=== PATIENT | female | born 1985 | race Caucasian/White ===

== ENCOUNTER 2020-09-25 23:01 | Emergency (ER) | payer BC, SELFPAY ==
--- NOTE | ~2020-09-25 | CT_ITS ---
EXAMINATION: CT abdomen pelvis w con INDICATION: Right-sided abdominal pain TECHNIQUE: Computed tomographic images of the abdomen and pelvis were obtained after the administrati on of 100 cc of Omnipaque 350 intravenous contrast. The dose-length product (DLP) was 1501.99 mGy-cm. Automated exposure control and iterative reconstruction technique were employed. COMPARISON: 05/12/2013 FINDINGS: Minimal dependent atelectasis is present in the lung bases. The heart size is normal. There are multiple nodules of the left lower lobe which measure up to 5 mm. An unchanged 7 mm hypoattenuat ing lesion of the left hepatic lobe is consistent with a benign finding. The spleen, pancreas, gallbl adder, and adrenal glands are normal. The kidneys are unremarkable. No pathologically enlarged abdomi nal or pelvic lymph nodes are identified. There is no free intraperitoneal gas or evidence of bowel o bstruction. The appendix is normal. There are supraumbilical hernias containing fat. A small fat-cont aining umbilical hernia is also noted. IMPRESSION: 1. No CT correlate for the patient's symptoms. 2. Multiple left lower lobe nodules measuring 5 mm or less, likely infectious or inflammatory. Reviewed, dictated and finalized at location A. IMPRESSION: 1. No CT correlate for the patient's symptoms. 2. Multiple left lower lobe nodules measuring 5 mm or less, likely infectious o r inflammatory.
[2020-09-25 23:10] VITALS: BP 163/79; PULSE 76; RESP 16; TEMP 36.4; O2SAT 100
--- NOTE | 2020-09-26 00:07 | ED.ABDPAIN ---
HPI - Abdominal Pain General Chief Complaint: Abdominal Pain Stated Complaint: abd pain Time Seen by Provider: 09/26/20 00:07 History of Present Illness HPI narrative: Sudden onset RUQ and right flank pain about 2 hours prior to arrival. Severe. Associated with nausea. This is a new problem. Related Data Allergies Allergy/AdvReac Type Severity Reaction Status Date / Time Quinolones Allergy Severe swelling Verified 09/26/20 00:51 of tongue and lips ciprofloxacin Allergy Mild Other Verified 09/26/20 00:51 Sulfa (Sulfonamide Allergy Mild swelling, Verified 09/26/20 00:51 Antibiotics) SOB terbutaline Allergy Mild Other Verified 09/26/20 00:51 adhesive Allergy Unknown Other Verified 09/26/20 00:51 Review of Systems Review of Systems: All systems reviewed & are unremarkable except as noted in HPI and below Constitutional: Constitutional: Denies fever(s) ENT: Reports dizziness Cardiovascular: Cardiovascular: Denies chest pain Respiratory: Respiratory: Denies dyspnea Gastrointestinal: Gastrointestinal: Reports abdominal pain and Reports nausea Genitourinary: Genitourinary: Reports nocturia Neurologic: Denies dizziness and Denies weakness [facility] Social History Social History (Updated 09/26/20 @ 03:30 by Gurpreet Borden MD) Smoking status: Never smoker Exam Const: General: healthy appearing, no acute distress and alert Orientation/consciousness: patient oriented x3 HENMT: Head: normal to inspection Neck: Neck: normal visual inspection and no lymphadenopathy Chest: Chest palpation & inspection: no tenderness Resp: Effort & Inspection: normal respiratory effort Auscultation: clear to auscultation bilaterally, no rales, no rhonchi and no wheezes Cardio: Jugular venous distension: no JVD Rate: regular rate Rhythm: regular rhythm Heart sounds: no murmurs GI: Inspection: non-distended GI Palp: Yes Soft to palpation and Yes Tenderness to palpation present (GI) (RUQ) : General: Yes CVA tenderness on the right Skin: General skin exam: normal color Neuro: General: patient oriented x3 and moves all extremities Speech: normal speech Extrem: General: no edema Psych: Appearance: well kempt Affect: normal affect Course Vital Signs Vital signs: Vital Signs Temperature 36.4 C L 09/25/20 23:10 Pulse Rate 76 09/25/20 23:10 Respiratory Rate 16 09/25/20 23:10 Blood Pressure 163/79 H 07/30/21 23:10 Pulse Oximetry 100 09/25/20 23:10 Temperature 36.4 C L 09/25/20 23:10 Pulse Rate 88 09/26/20 01:53 Respiratory Rate 18 09/26/20 01:53 Blood Pressure 141/94 H 09/26/20 01:53 Pulse Oximetry 100 09/26/20 01:53 MDM - Abdominal Pain MDM Narrative Medical decision making narrative: Blood on UA. Remaining labs and CT unremarkable. Pain much improved. Most likely passed a kidney stone. Differential Diagnosis Differential diagnosis: Likely calculus of kidney, pancreatitis and other (cholecystitis) Medical Records Attestation: I reviewed the patient's medical records. Lab Data Attestation: I reviewed the patient's lab results. Result diagrams: 09/26/20 00:45 09/26/20 00:45 Labs: Lab Results 09/26/20 09/26/20 09/26/20 Range/Units 00:45 00:45 00:45 WBC 9.3 (4.5-10.0) K/mm3 RBC 4.71 (4.2-5.4) M/mm3 Hgb 13.1 (12.0-15.0) g/dL Hct 40.0 (37.0-47.0) % MCV 84.9 (80-100) fl MCH 27.8 (26-34) pg MCHC 32.8 (32-36) g/dl RDW 13.3 (11.5-14.5) % Plt Count 316 (150-375) k/mm3 MPV 10.2 (7.4-10.4) fl Immature Gran % (Auto) 0.3 (0-0.5) % Neut % (Auto) 61.1 (45.5-73.1) % Lymph % (Auto) 29.6 (18.3-44.2) % [place] % (Auto) 6.0 (2.6-8.5) % Eos % (Auto) 2.5 (0-4.4) % Baso % (Auto) 0.5 (0.2-1.2) % Lymph # (Auto) 2.74 (0.9-3.2) K/mm3 [place] # (Auto) 0.6 (0.1-0.6) K/mm3 Eos # (Auto) 0.2 (0-0.3) K/mm3 Baso # (Auto) 0.1 (0.0-0.1) K/mm3 Abs Immat Gran (auto)
[2020-09-26] MEDS: fentaNYL CITRATE INJ (*CRX) 100 MCG/2 ML VIAL 50 MCG IV PUSH (00:57)
[2020-09-26] MEDS: ONDANSETRON INJ 4 MG/2 ML VIAL IV PUSH (00:57)
[2020-09-26] MEDS: SODIUM CHLORIDE 0.9% IV 1,000 ML 999 ML IV CONT (00:58)
[2020-09-26 01:10] LABS: Add Urine Microscopic? YES; Appearance Urine Clear (Clear); Bilirubin Urine Negative (Negative); Blood Urine 3+ (Negative); Color Urine Yellow (Yellow); Glucose Urine UA Negative (Negative); Ketones Urine Negative (Negative); Leukocyte Esterase Ur Negative LEU/UL (Negative); Mucus Urine Rare /lpf; Nitrate Urine Negative (Negative); Protein Urine Negative (Negative); RBC Urine >75 /hpf (0-2); Specific Grav Ur 1.018 (1.001-1.035); Squamous Epithelial Cell Urine Rare /hpf (Few); Urobilinogen Urine Negative mg/dL (<2.0); WBC Urine 0-3 /hpf
[2020-09-26 01:15] LABS: Basophils Absolute Auto 0.1 K/mm3 (0.0-0.1); Basophils Percent Auto 0.5 % (0.2-1.2); Eosinophils Absolute Auto 0.2 K/mm3 (0-0.3); Eosinophils Percent Auto 2.5 % (0-4.4); Hemoglobin 13.1 g/dL (12.0-15.0); Immature Granulocyte Absolute 0.03 K/mm3 (0.00-0.031); Immature Granulocyte Percent A 0.3 % (0-0.5); Lymphocytes Absolute Auto 2.74 K/mm3 (0.9-3.2); Lymphocytes Percent Auto 29.6 % (18.3-44.2); Mean Corpuscular HGB Conc 32.8 g/dl (32-36); Mean Corpuscular Hemoglobin 27.8 pg (26-34); Mean Corpuscular Volume 84.9 fl (80-100); Mean Platelet Volume 10.2 fl (7.4-10.4); Monocytes Absolute Auto 0.6 K/mm3 (0.1-0.6); Neutrophils Absolute Auto 5.7 K/mm3 (1.3-6.7); Neutrophils Percent Auto 61.1 % (45.5-73.1); Platelet Count Result 316 k/mm3 (150-375); Red Blood Count 4.71 M/mm3 (4.2-5.4); Red Cell Distribution Width 13.3 % (11.5-14.5); White Blood Count 9.3 K/mm3 (4.5-10.0)
[2020-09-26 01:30] LABS: Alanine Aminotransferase 13 U/L (4-35); Albumin Level 4.3 g/dL (3.5-5.1); Alkaline Phosphatase 71 U/L (38-126); Anion Gap 11 mmol/L (8-16); Aspartate Amino Transferase 18 U/L (14-36); Bilirubin,Total 0.2 mg/dL (0.2-1.3); Blood Urea Nitrogen 10 mg/dL (7-17); Calcium 9.3 mg/dL (8.4-10.2); Carbon Dioxide 22 mmol/L (22-30); Chloride 107 mmol/L (98-107); Estimated CRCL calculation 117 ml/min; Estimated Glomerular Filt Rate > 60; Glucose 94 mg/dL (65-110); Lipase 256 U/L (23-300); Potassium 4.2 mmol/L (3.4-5.0); Sodium 140 mmol/L (137-145)
[2020-09-26 01:53] VITALS: BP 141/94; PULSE 88; RESP 18; O2SAT 100
[2020-09-26 04:20] VITALS: BP 144/78; PULSE 88; RESP 18; O2SAT 100
== END 2020-09-26 04:20 | disposition home or self-care (01) ==
PROVIDERS: Emergency Provider Emergency Medicine
DX: R10.11 Right upper quadrant pain (principal); R91.8 Other nonspecific abnormal finding of lung field
CPT/HCPCS: 36415; 74177; 80053; 81001; 81025; 83690; 85025; 96361; 96374; 96375; 99284; J2405; J3010; J7030; Q9967

== ENCOUNTER 2020-11-27 20:27 | Emergency (ER) | payer BC, SELFPAY ==
--- NOTE | ~2020-11-27 | XR_ITS ---
IMPRESSION: 1. No acute cardiopulmonary abnormality. EXAMINATION: XR chest 2V DATE: 11/27/2020 21:11 INDICATION: Chest pain TECHNIQUE: PA and lateral views of the chest are obtained. COMPARISON: 08/26/2011 FINDINGS: The lungs are free of acute opacities. There is no pleural effusion or pneumothorax. The ca rdiomediastinal silhouette is normal. The visualized bones and soft tissues are unremarkable. IMPRESSION: 1. No acute cardiopulmonary abnormality. Reviewed, dictated and finalized at location A.
--- NOTE | 2020-11-27 20:42 | ECG_ITS ---
Measurements Intervals [place] Rate: 90 P: 30 [place]: 122 QRS: 70 QRSD: 108 T: 26 QT: 364 QTc: 447 Interpretive Statements SINUS RHYTHM BASELINE ARTIFACT- I, II, AVR NORMAL ECG Electronically Signed On 11-28-2020 8:30:58 CDT by David Dunn D.O.
[2020-11-27 20:50] VITALS: BP 163/110; PULSE 94; RESP 20; TEMP 37.2; O2SAT 98
[2020-11-27 21:41] LABS: Basophils Percent Auto 0.4 % (0.2-1.2); Eosinophils Percent Auto 0.4 % (0-4.4); Hematocrit 40.9 % (37.0-47.0); Hemoglobin 13.9 g/dL (12.0-15.0); Immature Granulocyte Absolute 0.04 K/mm3 (0.00-0.031); Immature Granulocyte Percent A 0.4 % (0-0.5); Lymphocytes Percent Auto 19.3 % (18.3-44.2); Mean Corpuscular Hemoglobin 28.4 pg (26-34); Mean Corpuscular Volume 83.6 fl (80-100); Mean Platelet Volume 9.6 fl (7.4-10.4); Monocytes Absolute Auto 0.6 K/mm3 (0.1-0.6); Neutrophils Absolute Auto 7.6 K/mm3 (1.3-6.7); Neutrophils Percent Auto 73.5 % (45.5-73.1); Platelet Count Result 329 k/mm3 (150-375); Red Blood Count 4.89 M/mm3 (4.2-5.4); Red Cell Distribution Width 13.5 % (11.5-14.5); White Blood Count 10.4 K/mm3 (4.5-10.0)
[2020-11-27 21:53] LABS: Anion Gap 13 mmol/L (8-16); Blood Urea Nitrogen 6 mg/dL (7-17); Calcium 9.7 mg/dL (8.4-10.2); Carbon Dioxide 19 mmol/L (22-30); Chloride 106 mmol/L (98-107); Estimated CRCL calculation 133 ml/min; Estimated Glomerular Filt Rate > 60; Glucose 102 mg/dL (65-110); Potassium 3.7 mmol/L (3.4-5.0); Sodium 138 mmol/L (137-145)
[2020-11-27 22:05] LABS: Troponin I < 0.012 ng/mL (0.000-0.034)
[2020-11-28 02:12] VITALS: BP 150/97; PULSE 79; RESP 23; O2SAT 99
[2020-11-28 02:16] LABS: Prothrombin Time 12.9 Seconds (11.1-14.7)
[2020-11-28 02:17] LABS: Partial Thromboplastin Time 28.3 SECONDS (22.3-36.8)
[2020-11-28 02:29] LABS: Troponin I < 0.012 ng/mL (0.000-0.034)
[2020-11-28] MEDS: MECLIZINE HCL 25 MG TABLET PO (02:51)
[2020-11-28] MEDS: HYDROGEN PEROXIDE 3% SOLN(*SP) 473 ML BOTTLE (03:30)
--- NOTE | 2020-11-28 03:34 | PC.NURSE ---
irrigated bilateral ears w/ hydrogen peroxide and warm water. noticeable earwax extracted from both ears.
[2020-11-28 04:15] VITALS: BP 144/98; PULSE 89; RESP 17; O2SAT 99
--- NOTE | 2020-11-28 04:34 | ED.CHESTPAIN ---
HPI - Chest Pain General Chief Complaint: Chest Pain Stated Complaint: chest pain Time Seen by Provider: 11/28/20 02:30 History of Present Illness HPI narrative: Patient is a 35-year-old female who presents to the ER with dizziness and chest pain. Reports she was walking a local department store when she began to feel lightheaded. She then developed chest pain and tightness. She began to feel anxious as well. Chest pain persists but the anxiousness has resolved. Reports mild dizziness with nausea. No ringing in the ear. No sinus congestion or sore throat. Related Data Allergies Allergy/AdvReac Type Severity Reaction Status Date / Time Quinolones Allergy Severe swelling Verified 11/27/20 20:53 of tongue and lips ciprofloxacin Allergy Mild Other Verified 11/27/20 20:53 Sulfa (Sulfonamide Allergy Mild swelling, Verified 11/27/20 20:53 Antibiotics) SOB terbutaline Allergy Mild Other Verified 11/27/20 20:53 adhesive Allergy Unknown Other Verified 11/27/20 20:53 Review of Systems Review of Systems: All systems reviewed & are unremarkable except as noted in HPI and below Constitutional: Constitutional: Denies chills, Denies fever(s) and Denies weakness ENT: Reports dizziness, Denies nasal congestion and Denies sore throat Cardiovascular: Cardiovascular: Reports chest pain, Denies rapid heart rate and Denies radiating jaw, neck or arm pain Respiratory: Respiratory: Denies cough and Denies dyspnea Gastrointestinal: Gastrointestinal: Denies abdominal pain, Reports nausea and Denies vomiting PMFSH Past Medical History Medical History (Updated 11/28/20 @ 04:46 by Gagan Carrera MD) Interstitial cystitis Migraines Surgical History Surgical History (Updated 11/28/20 @ 04:38 by Gagan Carrera MD) History of tubal ligation Social History Social History (Updated 09/26/20 @ 03:30 by Gurpreet Borden MD) Smoking status: Never smoker Exam Narrative: GENERAL: Well-appearing, well-nourished, and in no acute distress. HEAD: Normocephalic, atraumatic. EYES: PERRL and EOMI. ENT: Mucous membranes moist. Moderate cerumen right ear canal with partial obstruction of the tympanic membrane. Normal left tympanic membrane. CHEST: Clear to auscultation. No respiratory distress. HEART: Regular rate and rhythm. Normal peripheral pulses. ABDOMEN: Soft, nontender, nondistendeds. EXTREMITIES: Normal range of motion. No edema. SKIN: Warm, dry, no rash. NEURO: Alert and oriented x3. Course Course Emergency Course: Troponin negative x2. Meclizine given for dizziness. No hypoxia or elevated heart rate. No pain with deep breaths. Lower extremity swelling. Discharge home with anti-inflammatories. Follow-up with PCP. Vital Signs Vital signs: Vital Signs Temperature 98.9 F 11/27/20 20:50 Pulse Rate 94 11/27/20 20:50 Respiratory Rate 20 11/27/20 20:50 Blood Pressure 163/110 H 11/27/20 20:50 Pulse Oximetry 98 11/27/20 20:50 Temperature 98.9 F 11/27/20 20:50 Pulse Rate 89 11/28/20 04:15 Respiratory Rate 17 11/28/20 04:15 Blood Pressure 144/98 H 11/28/20 04:15 Pulse Oximetry 99 11/28/20 04:15 MDM - Chest Pain Lab Data Result diagrams: 11/27/20 21:31 11/27/20 21:31 Labs: Lab Results 11/27/20 11/27/20 11/28/20 Range/Units 21:31 21:31 01:51 WBC 10.4 H (4.5-10.0) K/mm3 RBC 4.89 (4.2-5.4) M/mm3 Hgb 13.9 (12.0-15.0) g/dL Hct 40.9 (37.0-47.0) % MCV 83.6 (80-100) fl MCH 28.4 (26-34) pg MCHC 34.0 (32-36) g/dl RDW 13.5 (11.5-14.5) % Plt Count 329 (150-375) k/mm3 MPV 9.6 (7.4-10.4) fl Immature Gran % (Auto) 0.4 (0-0.5) % Neut % (Auto) 73.5 H (45.5-73.1) % Lymph % (Auto) 19.3 (18.3-44.2) % [place] % (Auto) 6.0 (2.6-8.5) % Eos % (Auto) 0.4 (0-4.4) % Baso % (Auto) 0.4 (0.2-1.2) % Lymph # (Auto) 2.00 (0.9-3.2) K/mm3 [place] # (Auto) 0.6 (0.1-0.6) K/mm3 Eos
[2020-11-28 04:57] VITALS: BP 159/91; PULSE 68; RESP 17; O2SAT 99
== END 2020-11-28 05:00 | disposition home or self-care (01) ==
PROVIDERS: Emergency Medicine; Emergency Provider Emergency Medicine
DX: R07.89 Other chest pain (principal)
CPT/HCPCS: 36415; 71046; 80048; 84484; 85025; 85610; 85730; 93005; 99284; A9270

== ENCOUNTER 2021-01-19 12:08 | Emergency (ER) | payer BC, SELFPAY ==
[2021-01-19] VITALS (22 sets, daily range): BP systolic 110–140; BP diastolic 80–92; PULSE 70–96; RESP 16–33; TEMP 36.4; O2SAT 97–98
--- NOTE | ~2021-01-19 | XR_ITS ---
EXAMINATION: XR chest 2V DATE: 01/19/2021 13:25 INDICATION: Midsternal chest pain TECHNIQUE: frontal and lateral views of the chest were obtained. COMPARISON: Chest radiograph dated 11/27/2020 FINDINGS: The lungs remain clear with no focal airspace opacities, pulmonary edema, pleural effusion or pneumot horax. The cardiomediastinal silhouette is normal. Visualized bones and soft tissues are unremarkable . IMPRESSION: 1. No acute cardiopulmonary disease. Reviewed, dictated and finalized at location A. TION DEVELOPER
--- NOTE | 2021-01-19 13:00 | ECG_ITS ---
Measurements Intervals [place] Rate: 91 P: 37 PA: 132 QRS: 67 QRSD: 104 T: 38 QT: 373 QTc: 461 Interpretive Statements SINUS RHYTHM INCOMPLETE RIGHT BUNDLE BRANCH BLOCK BORDERLINE ECG Electronically Signed On 01-19-2021 16:25:59 [employer]OCK AND WATCH HANDS DIPPER by David Dunn D.O.
--- NOTE | 2021-01-19 13:13 | ED.CHESTPAIN ---
HPI - Chest Pain General Chief Complaint: Chest Pain Stated Complaint: cp, sob Time Seen by Provider: 01/19/21 12:55 Source: patient Mode of arrival: ambulatory Limitations: no limitations History of Present Illness HPI narrative: Patient is a 35-year-old female complaining of chest pain, midsternal, sharp, 4 out of 10, nonradiating started today. Patient denies any shortness of breath, abdominal pain, nausea, vomiting, diaphoresis, fever or chills. Patient states that she had similar events in the past, most recent was last month was seen here and was diagnosed with atypical chest pain. Related Data Home Medications Medication Instructions Recorded Confirmed nitrofurantoin monohyd/m-cryst 100 mg PO Q12H 01/19/21 [Macrobid] Allergies Allergy/AdvReac Type Severity Reaction Status Date / Time Quinolones Allergy Severe swelling Verified 01/19/21 12:16 of tongue and lips ciprofloxacin Allergy Mild Other Verified 01/19/21 12:16 Sulfa (Sulfonamide Allergy Mild swelling, Verified 01/19/21 12:16 Antibiotics) SOB terbutaline Allergy Mild Other Verified 01/19/21 12:16 adhesive Allergy Unknown Other Verified 01/19/21 12:16 Review of Systems Review of Systems: All systems reviewed & are unremarkable except as noted in HPI and below Constitutional: Constitutional: Denies body ache(s), Denies chills, Denies excessive sweating, Denies fatigue, Denies fever(s), Denies headache(s), Denies lethargy, Denies malaise, Denies weakness and Denies weight loss Eyes: Eyes: Denies blurry vision, Denies change in vision and Denies loss of vision ENT: Denies dizziness, Denies ear discharge, Denies headache(s), Denies lip swelling, Denies epistaxis, Denies nasal congestion, Denies neck pain, Denies throat swelling and Denies tongue swelling Cardiovascular: Cardiovascular: Denies diaphoresis, Denies rapid heart rate, Denies edema, Denies irregular heart rhythm, Denies lightheadedness, Denies palpitations, Denies dyspnea and Denies dyspnea on exertion Respiratory: Respiratory: Denies chest congestion, Denies cough, Denies hemoptysis, Denies dyspnea and Denies dyspnea on exertion Gastrointestinal: Gastrointestinal: Denies abdominal pain, Denies melena, Denies hematochezia, Denies diarrhea, Denies nausea, Denies vomiting and Denies hematemesis Musculoskeletal: Musculoskeletal: Denies abnormal gait, Denies deformity, Denies joint swelling, Denies limited range of motion, Denies neck pain and Denies numbness Neurologic: Denies Abnormal speech present, Denies abnormal gait, Denies confusion, Denies dizziness, Denies headache(s), Denies focal weakness, Denies loss of vision, Denies numbness, Denies Other visual disturbances, Denies Sensory deficit (Neuro) and Denies weakness Psychiatric: Psychiatric: Denies confusion, Denies depression, Denies auditory hallucinations, Denies homicidal ideation and Denies suicidal ideation Endocrine: Endocrine: Denies cold intolerance, Denies excessive sweating, Denies fatigue, Denies heat intolerance and Denies palpitations Hematologic/Lymphatic: Hematologic/Lymphatic: Denies easy bleeding and Denies easy bruising Allergic/Immunologic: Allergic/Immunologic: Denies lip swelling, Denies throat swelling and Denies tongue swelling PMFSH Past Medical History Medical History (Updated 01/19/21 @ 15:55 by Jose Francisco Martin MD) Interstitial cystitis Migraines Surgical History Surgical History (Updated 11/28/20 @ 04:38 by Gagan Carrera MD) History of tubal ligation Social History Social History (Updated 09/26/20 @ 03:30 by Gurpreet Borden MD) Smoking status: Never smoker Comments Past medical history: None Family history: Negative for coronary disease or [place] Social history: Non-smoker no EtOH or drug use Exam Const: General: cooperative, healthy appearing, comfortable, no acute distress, well developed, alert and awake; No confusion Orientation/consciousness: oriented to person, orien
[2021-01-19 13:29] LABS: Basophils Percent Auto 0.5 % (0.2-1.2); Eosinophils Percent Auto 0.4 % (0-4.4); Hematocrit 40.2 % (37.0-47.0); Hemoglobin 13.7 g/dL (12.0-15.0); Immature Granulocyte Absolute 0.03 K/mm3 (0.00-0.031); Immature Granulocyte Percent A 0.4 % (0-0.5); Lymphocytes Percent Auto 19.7 % (18.3-44.2); Mean Corpuscular HGB Conc 34.1 g/dl (32-36); Mean Corpuscular Hemoglobin 28.9 pg (26-34); Mean Corpuscular Volume 84.8 fl (80-100); Mean Platelet Volume 10.1 fl (7.4-10.4); Monocytes Absolute Auto 0.4 K/mm3 (0.1-0.6); Monocytes Percent Auto 4.9 % (2.6-8.5); Neutrophils Absolute Auto 5.6 K/mm3 (1.3-6.7); Neutrophils Percent Auto 74.1 % (45.5-73.1); Platelet Count Result 316 k/mm3 (150-375); Red Blood Count 4.74 M/mm3 (4.2-5.4); Red Cell Distribution Width 13.2 % (11.5-14.5); White Blood Count 7.6 K/mm3 (4.5-10.0)
[2021-01-19 13:33] LABS: INR 1.1; Prothrombin Time 13.6 Seconds (11.1-14.7)
[2021-01-19 13:34] LABS: Partial Thromboplastin Time 28.9 SECONDS (22.3-36.8)
[2021-01-19 13:37] LABS: D Dimer 0.34 ug/mL (<0.48)
[2021-01-19 13:47] LABS: Alanine Aminotransferase 16 U/L (4-35); Albumin Level 4.4 g/dL (3.5-5.1); Alkaline Phosphatase 91 U/L (38-126); Anion Gap 10 mmol/L (8-16); Aspartate Amino Transferase 21 U/L (14-36); Bilirubin,Total 0.7 mg/dL (0.2-1.3); Blood Urea Nitrogen 6 mg/dL (7-17); Calcium 9.7 mg/dL (8.4-10.2); Carbon Dioxide 23 mmol/L (22-30); Chloride 107 mmol/L (98-107); Estimated CRCL calculation 127 ml/min; Estimated Glomerular Filt Rate > 60; Glucose 99 mg/dL (65-110); Lipase 106 U/L (23-300); Potassium 3.8 mmol/L (3.4-5.0); Sodium 140 mmol/L (137-145)
[2021-01-19 14:16] LABS: Troponin I < 0.012 ng/mL (0.000-0.034)
[2021-01-19] MEDS: KETOROLAC 30 MG/ML VIAL (*BKC) (15:00)
[2021-01-19 15:29] LABS: Troponin I < 0.012 ng/mL (0.000-0.034)
== END 2021-01-19 16:28 | disposition home or self-care (01) ==
PROVIDERS: Emergency Provider Emergency Medicine
DX: R07.89 Other chest pain (principal)
CPT/HCPCS: 36415; 71046; 80053; 83690; 84484; 85025; 85380; 85610; 85730; 93005; 96374; 99284; J1885

== ENCOUNTER 2021-01-19 18:58 | Observation (INO) | payer BC, SELFPAY ==
[2021-01-19] VITALS (13 sets, daily range): BP systolic 140–165; BP diastolic 78–110; PULSE 70–90; RESP 13–29; TEMP 36.2; O2SAT 99
--- NOTE | ~2021-01-19 | CT_ITS ---
EXAMINATION: CT brain wo con DATE: 01/20/2021 08:49 INDICATION: Syncope. TECHNIQUE: Computed tomography (CT) of the head was performed without intravenous contrast. The mA wa s adjusted according to patient size. Iterative reconstruction technique was employed. The dose-lengt h product was 529.67 mGy-cm. COMPARISON: Head CT 01/25/2009, brain MRI 01/26/2009 FINDINGS: There is no intracranial hemorrhage, acute infarction, or abnormal intracranial mass lesion . The ventricles are normal in size. There is mild mucosal thickening in the ethmoid sinuses. The mas toid air cells are normal. The orbits are normal. IMPRESSION: 1. Normal brain. Reviewed, dictated and finalized at location B. S TRADER IMPRESSION: 1. Normal brain.
--- NOTE | ~2021-01-19 | US_ITS ---
EXAMINATION: US venous doppler [facility] DATE: 01/22/2021 08:37 INDICATION: Bilateral lower limb pain TECHNIQUE: Torres scale images without and with compression and Doppler images of the bilateral lower e xtremity veins were obtained. COMPARISON: None FINDINGS: The right common femoral vein, profunda femoral vein, femoral vein, popliteal vein, peroneal trunk, p osterior tibial veins, and greater saphenous vein are patent. The left common femoral vein, profunda femoral vein, femoral vein, popliteal vein, peroneal trunk, po sterior tibial veins, and greater saphenous vein are patent. IMPRESSION: 1. Patent bilateral lower extremity veins. No evidence of deep venous thrombosis. Reviewed, dictated and finalized at location A. SPECIALIST IMPRESSION: 1. Patent bilateral lower extremity veins. No evidence of deep venous thrombosi s.
--- NOTE | ~2021-01-19 | US_ITS ---
EXAMINATION: US carotid duplex BI DATE: 01/20/2021 09:25 INDICATION: Syncope TECHNIQUE: Grayscale, color Doppler, and pulsed Doppler images of the cervical carotid arteries were obtained. The degree of vessel stenosis is placed in one of the following categories: normal, <50%, 5 0-69%, >=70% but less than near-occlusion, near-occlusion, or total occlusion. Note that percent sten osis relative to normal distal artery lumen diameter is indirectly measured from velocity measurement s as described by Gurpreet, et al. Radiology 2003; 229:340-346. COMPARISON: None. FINDINGS: RIGHT: The right common carotid artery (CCA) peak systolic velocity (PSV) is 86 cm/s. The right internal car otid artery (ICA) PSV is 100 cm/s. The right ICA end-diastolic velocity (EDV) is 48 cm/s. The right I CA/CCA PSV ratio is 1.2. Grayscale and color Doppler images demonstrate no evident stenosis or plaque in the ICA. The external carotid artery (ECA) PSV is 83 cm/s. There is antegrade flow in the right v ertebral artery. LEFT: The left CCA PSV is 113 cm/s. The left ICA PSV is 80 cm/s. The left ICA EDV is 32 cm/s. The left ICA/ CCA PSV ratio is 0.7. Grayscale and color Doppler images demonstrate no evident stenosis or plaque in the ICA. The ECA PSV is 85 cm/s. There is antegrade flow in the left vertebral artery. IMPRESSION: 1. No plaque or stenosis in the right internal carotid artery. 2. No plaque or stenosis in the left internal carotid artery. Reviewed, dictated and finalized at location A. F BANK EXAMINER
--- NOTE | ~2021-01-19 | CT_ITS ---
EXAMINATION: CT abdomen pelvis w con DATE: 01/22/2021 05:51 INDICATION: Unexplained weight loss. Left lower quadrant abdominal pain. TECHNIQUE: Computed tomography (CT) of the abdomen and pelvis was performed with 100 mL Omnipaque-350 intravenous contrast. Automated exposure control and iterative reconstruction technique were employe d. The dose-length product was 1475.17 mGy-cm. COMPARISON: 09/26/2020 and 05/12/2013. Gallbladder, pancreas, bilateral adrenal glands and kidneys are normal. FINDINGS: No significant interval change in a few nodules measuring up to 4 mm in the left lower lobe noted on the most recent study. Heart size is normal. No pericardial or pleural effusion. Small sliding-type h iatal hernia. Likely benign 7 mm hypodense lesion in segment IVb of the liver which is unchanged sinc e 2013. A couple likely benign subcentimeter low-attenuation splenic lesions also unchanged since the most recent study and one of which was present in 2013. Normal appendix. No abnormal bowel wall thic kening or obstruction. Tiny fat-containing umbilical hernia. Small to moderate-sized fat-containing s upraumbilical ventral hernia. Bladder, anteverted uterus and bilateral adnexa are unremarkable aside from likely bilateral tubal ligations. Correlate with clinical history. No free intraperitoneal gas o r fluid. No pathologically enlarged abdominal or pelvic lymphadenopathy. Bones are unremarkable. IMPRESSION: 1. No acute intra-abdominal/pelvic process. 2. Small sliding-type hiatal hernia. 3. Fat-containing umbilical and supraumbilical ventral hernias. Reviewed, dictated and finalized at location A. CARRIER
--- NOTE | ~2021-01-19 | US_ITS ---
EXAMINATION: US abdomen limited EXAM DATE: 01/20/2021 09:22 INDICATION: Epigastric pain. TECHNIQUE: Multiple grayscale and Doppler images of the abdomen right upper quadrant were obtained (alma rosa marquez a technologist who performed the scan) and subsequently reviewed. There is no prior study for bernie nicholson. FINDINGS: The pancreatic head and body are normal in appearance. The pancreatic tail is not visualized. The l iver has normal echogenicity and contour. There are no focal liver lesions identified. There is no evidence of intrahepatic biliary duct dilation. Portal venous flow was seen in the hepatopedal, nor mal direction and has normal Doppler waveform. No right-sided hydronephrosis. Common bile duct measures 3 mm, which is normal. The gallbladder wall is normal in thickness, with ex pected amount of distention. No sonographic evidence of pericholecystic fluid. There is no cholelit hiases. Technologist performing exam reports patient did not demonstrate sonographic Leon's sign. Please note that this sign is less reliable in patients who have received pain medication. IMPRESSION: Unremarkable right upper quadrant sonogram. Reviewed, dictated and finalized at location A. RAL STATION OPERATOR
--- NOTE | ~2021-01-19 | CT_ITS ---
EXAMINATION: CTA chest PE protocol DATE: 01/19/2021 20:08 TECHNICAL WRITING LEAD/MGR INDICATION: Shortness of breath, chest pain and syncope TECHNIQUE: Computed tomographic angiography (CTA) of the chest was performed with 100 mL Omnipaque-35 0 intravenous contrast. The dose-length product was 578.85 mGy-cm. Maximum intensity projection 3D-re constructions of the aorta and other arteries were constructed by the technologist on a separate work station. Automated exposure control and iterative reconstruction technique were employed. COMPARISON: Chest x-ray dated 01/19/2021. FINDINGS: Study is technically adequate without evidence for pulmonary embolism. No evidence for aort ic aneurysm or dissection. No significant pleural or pericardial effusion. Small hiatal hernia. Heart size is normal. No thoracic lymphadenopathy. No endobronchial lesions. Dependent atelectasis. No pne umothorax. No focal airspace consolidation. No pulmonary nodules/masses. IMPRESSION: 1. No acute cardiopulmonary disease. No evidence for pulmonary embolism. Reviewed, dictated and finalized at location A. NICAL WRITING LEAD/MGR
--- NOTE | 2021-01-19 19:00 | ECG_ITS ---
Measurements Intervals [place] Rate: 74 P: 29 [place]: 125 QRS: 61 QRSD: 105 T: 39 QT: 394 QTc: 439 Interpretive Statements SINUS RHYTHM INCOMPLETE RIGHT BUNDLE BRANCH BORDERLINE ECG BLOCK Electronically Signed On 01-19-2021 19:25:05 LAND AGENT by David Dunn D.O.
[2021-01-19 19:19] LABS: Basophils Absolute Auto 0.1 K/mm3 (0.0-0.1); Basophils Percent Auto 0.7 % (0.2-1.2); Eosinophils Absolute Auto 0.1 K/mm3 (0-0.3); Eosinophils Percent Auto 0.7 % (0-4.4); Hematocrit 42.3 % (37.0-47.0); Hemoglobin 14.4 g/dL (12.0-15.0); Immature Granulocyte Absolute 0.02 K/mm3 (0.00-0.031); Immature Granulocyte Percent A 0.2 % (0-0.5); Lymphocytes Absolute Auto 1.88 K/mm3 (0.9-3.2); Lymphocytes Percent Auto 21.9 % (18.3-44.2); Mean Corpuscular Hemoglobin 28.9 pg (26-34); Mean Corpuscular Volume 84.9 fl (80-100); Mean Platelet Volume 9.9 fl (7.4-10.4); Monocytes Absolute Auto 0.6 K/mm3 (0.1-0.6); Monocytes Percent Auto 6.5 % (2.6-8.5); Platelet Count Result 317 k/mm3 (150-375); Red Blood Count 4.98 M/mm3 (4.2-5.4); Red Cell Distribution Width 13.3 % (11.5-14.5); White Blood Count 8.6 K/mm3 (4.5-10.0)
[2021-01-19 19:30] LABS: Prothrombin Time 13.4 Seconds (11.1-14.7)
[2021-01-19 19:31] LABS: Partial Thromboplastin Time 27.6 SECONDS (22.3-36.8)
[2021-01-19 19:37] LABS: Alanine Aminotransferase 17 U/L (4-35); Albumin Level 4.6 g/dL (3.5-5.1); Alkaline Phosphatase 96 U/L (38-126); Anion Gap 13 mmol/L (8-16); Aspartate Amino Transferase 20 U/L (14-36); Bilirubin,Total 0.8 mg/dL (0.2-1.3); Blood Urea Nitrogen 7 mg/dL (7-17); Calcium 9.7 mg/dL (8.4-10.2); Carbon Dioxide 20 mmol/L (22-30); Chloride 104 mmol/L (98-107); Estimated CRCL calculation 113 ml/min; Estimated Glomerular Filt Rate > 60; Glucose 94 mg/dL (65-110); Lipase 141 U/L (23-300); Potassium 3.5 mmol/L (3.4-5.0); Sodium 137 mmol/L (137-145)
[2021-01-19 19:50] LABS: Troponin I < 0.012 ng/mL (0.000-0.034)
[2021-01-19] MEDS: LIDOCAINE 5% PATCH 2 PATCH TRANSDERM (21:32)
--- NOTE | 2021-01-19 21:37 | PC.NURSE ---
patients demanding ultrasound of gallbladder for patient. request passed on to ERP
--- NOTE | 2021-01-19 22:17 | ED.CHESTPAIN ---
HPI - Chest Pain General Chief Complaint: Chest Pain Stated Complaint: Dizzy, Syncopal Episode Time Seen by Provider: 01/19/21 19:46 Source: patient and family Mode of arrival: EMS Limitations: clinical condition History of Present Illness HPI narrative: 35-year-old female Here for syncope and chest pain See prior note of earlier ED visit today here for similar issues which ended with benign work-up and discharged back to home However the patient says that when she was discharged she was still having a lot of pain and that when she got back to the house she had another episode of sharp pain culminating in a syncopal episode after standing up to walk into the kitchen and recovered to find her family running around and fanning her and calling EMS When she notes that she continues to have pain even now and that she is also experiencing dizziness which seems like more vertigo even while lying still and supine on the gurney In addition to that she reports that she has general weakness and fatigue and believes that she has lost weight or at least going down 2 pant sizes over the last month or 2 without trying to do so Related Data Home Medications Medication Instructions Recorded Confirmed nitrofurantoin monohyd/m-cryst 100 mg PO Q12H 01/19/21 [Macrobid] Allergies Allergy/AdvReac Type Severity Reaction Status Date / Time Quinolones Allergy Severe swelling Verified 01/19/21 20:10 of tongue and lips ciprofloxacin Allergy Mild Other Verified 01/19/21 20:10 Sulfa (Sulfonamide Allergy Mild swelling, Verified 01/19/21 20:10 Antibiotics) SOB terbutaline Allergy Mild Other Verified 01/19/21 20:10 adhesive Allergy Unknown Other Verified 01/19/21 20:10 naproxen AdvReac Swelling Verified 01/19/21 20:10 Review of Systems Review of Systems: All systems reviewed & are unremarkable except as noted in HPI and below Constitutional: Constitutional: Reports no additional constitutional complaints, Denies chills, Reports fatigue, Denies fever(s), Denies headache(s) and Reports weakness Eyes: Eyes: Reports no additional eye complaints and Denies change in vision ENT: Reports vertigo, Reports dizziness, Denies headache(s) and Denies sore throat Cardiovascular: Cardiovascular: Reports chest pain and Denies dyspnea Respiratory: Respiratory: Denies cough and Denies dyspnea Gastrointestinal: Gastrointestinal: Denies abdominal pain, Denies diarrhea, Denies nausea and Denies vomiting Genitourinary: Genitourinary: Denies urinary frequency and Denies dysuria Musculoskeletal: Musculoskeletal: Denies deformity, Reports arthralgias, Denies joint swelling and Denies numbness Integumentary/Breasts: Skin/Breast: Denies rash and Denies wounds Neurologic: Denies headache(s), Denies focal weakness and Denies numbness Psychiatric: Psychiatric: Reports no additional psychiatric complaints Endocrine: Endocrine: Reports no additional endocrine complaints Hematologic/Lymphatic: Hematologic/Lymphatic: Reports no additional hematologic/lymphatic complaints Allergic/Immunologic: Allergic/Immunologic: Reports no additional allergic/immunologic complaints [facility] Past Medical History Medical History (Reviewed 01/19/21 @ 22: by Gibson Olivas MD) Interstitial cystitis Migraines Surgical History Surgical History (Reviewed 01/19/21 @ : by Gisbon Olivas MD) History of tubal ligation Social History Social History (Reviewed 01/19/21 @ 22: by Gibson Olivas MD) Smoking status: Never smoker Exam Const: General: cooperative, no acute distress and alert Nutritional Appearance: obese Orientation/consciousness: patient oriented x3 (alert) HENMT: Head: normal to inspection, normocephalic, atraumatic, no contusions and no hematomas Ears: external ears normal General nose exam: no epistaxis Eyes: Conjunctivae: conjunctivae normal EOM: EOMs intact bilaterally Other: No nystagmus Neck: Neck: normal visual inspection
[2021-01-19 22:27] LABS: Troponin I < 0.012 ng/mL (0.000-0.034)
[2021-01-19] MEDS: BELLADONNA ALK/PHENOB ELIX 10 ML, MAG HYDROX/ALUMINUM HYD/SIMETH 30 ML, LIDOCAINE HCL 2... PO (23:27)
[2021-01-20] VITALS (11 sets, daily range): BP systolic 112–166; BP diastolic 46–100; PULSE 70–85; RESP 16–20; TEMP 36.1–37.1; O2SAT 97–99; BMI 39.9
--- NOTE | 2021-01-20 00:20 | ADMGEN ---
This patient, Brandy Yip, was admitted to 3 [facility] Surg Room 309-01. Patient/family oriented to hospital policies and general routines including ID bracelet, bed and alarms, visiting hours, pain management, procedures, bathroom and other care routines, personal items, smoking policy, room service/diet, and visiting hours. Information on how to activate the Rapid Response Team has been discussed. Patient/Family are encouraged to report perceived risks to care and to ask questions if they do not understand what they are told or what they should do.
[2021-01-20] MEDS: LACTATED RINGERS 1,000 ML 80 ML IV CONT ×2 (00:25→15:55)
[2021-01-20 01:55] LABS: Troponin I < 0.012 ng/mL (0.000-0.034)
--- NOTE | 2021-01-20 03:50 | PM.IMHP ---
H&P: HPI History of Present Illness Date/Time: 01/20/21 03:50 Chief Complaint: Syncope Narrative: This is a 35-year-old female with past medical history significant for migraines, morbid obesity. Patient presented to the emergency room after she had a syncopal episode she had been to the emergency room 2 days prior to to the night where she had a workup done for acute chest pain that turned out nonrevealing and she was sent home. Tonight the patient comes back to the emergency room after she had a syncopal episode while she got up went to the kitchen while standing and walk up to a sternal rub was laying on the floor her blood pressure at that time systolic was 160 and he was measured by 1 of her family members she was brought to the emergency room while in the emergency room she got up and she had another syncopal episode. Preliminary workup again has been essentially nonrevealing. Patient states that she has been having nausea and vomiting for the last several days has not been able to keep anything down she denies any fevers, chills, rigors, cough, sputum production, abdominal pain or diarrhea, has had some weight loss as a result of these. Patient was noted to be orthostatic she has been admitted for further management assessment and treatment. A CT did not show pulmonary embolism a chest x-ray did not show any infiltrates. Review of Systems Review of Systems: Syncope, lightheadedness, nausea vomiting. Constitutional: Constitutional: Denies chills, Denies fever(s), Denies lethargy, Denies night sweats, Denies poor appetite and Denies weakness Eyes: Eyes: Denies change in vision ENT: Denies dysphagia, Denies vertigo, Denies dizziness, Denies nasal congestion, Denies nasal discharge, Denies nasal obstruction and Denies odynophagia Cardiovascular: Cardiovascular: Denies leg edema, Reports lightheadedness, Denies radiating jaw, neck or arm pain, Denies palpitations, Denies dyspnea, Denies dyspnea on exertion and Denies orthopnea Respiratory: Respiratory: Denies change in phlegm color, Denies cough, Denies excessive phlegm production, Denies pain on inspiration, Denies dyspnea and Denies wheezing Gastrointestinal: Gastrointestinal: Denies abdominal pain, Denies dyspepsia, Denies heartburn, Denies diarrhea, Reports nausea and Reports vomiting Genitourinary: Genitourinary: Denies dysuria Musculoskeletal: Musculoskeletal: Denies back pain and Denies myalgias Integumentary/Breasts: Skin/Breast: Denies rash Neurologic: Denies focal weakness and Denies Sensory deficit (Neuro) Psychiatric: Psychiatric: Reports no additional psychiatric complaints and Reports as per HPI Endocrine: Endocrine: Reports no additional endocrine complaints and Reports as per HPI Hematologic/Lymphatic: Hematologic/Lymphatic: Reports no additional hematologic/lymphatic complaints and Reports as per HPI Allergic/Immunologic: Allergic/Immunologic: Reports no additional allergic/immunologic complaints and Reports as per HPI PMFSH Past Medical History Medical History Interstitial cystitis Migraines Surgical History Surgical History History of tubal ligation Family History Family History (Updated 01/20/21 @ 00:52 by Clare Byers RN) Son Immunocompromised Sibling Immunocompromised Grandparent Cancer Hypertension Diabetes mellitus Congestive heart failure Cerebrovascular accident History of blood clots Acute myocardial infarction Father Cancer Hypertension Social History Social History Smoking status: Never smoker Alcohol intake: never Substance use: never Substance use type: does not use Spiritual care concerns: No Meds Home Medications and Allergies Home Medications Medication Instructions Recorded Confirmed Type No Home Medications 01/20/21 01/20/21 H
[2021-01-20] MEDS: SUCRALFATE SUSP 100 MG/ML 10 ML UDC 1000 MG PO ×4 (05:31→20:31)
--- NOTE | 2021-01-20 08:00 | P.PNIM_ITS ---
Progress Note: A&P Assessment and Plan (1) Orthostatic syncope: Code(s): I95.1 - Orthostatic hypotension Status: Acute Assessment and Plan: * HX of seizures, took Keppra, but experienced mental changes * One episode prior to arrival and one episode in the ED * Head CT Normal brain * Carotid doppler: no stenosis Bilaterally * Neurology consult thank you for your recommendations * IV fluids LR 80ml/hr * Monitor I's and O's * CTA No PE or cardiopulmonary disease * ECG SR * EEG ordered * Wonder if BP is playing a role in the syncope (2) Nausea and vomiting: Code(s): R11.2 - Nausea with vomiting, unspecified Status: Acute Assessment and Plan: * Seems to be resolved at this time * Natalie ordered * Heart healthy diet, and stated that she was hungry. (3) Morbid obesity with BMI of 40.0-44.9, adult: Code(s): E66.01 - Morbid (severe) obesity due to excess calories; Z68.41 - Body mass index [BMI] 40.0-44.9, adult Status: Acute Assessment and Plan: * Lifestyle and diet modifications (4) Hypertension: Code(s): I10 - Essential (primary) hypertension Status: Acute Assessment and Plan: * Looks to be hypertensive * 120-170 systolically * Will continue to trend * Awaiting orthostatic pressures as well (5) Abdominal pain: Code(s): R10.9 - Unspecified abdominal pain Status: Acute Assessment and Plan: * complaining of intermittent lower left abdominal pain * looks as if she get a GI cocktail in the ED * Carafate and Protonix started * abdominal ultrasound unremarkable * supportive care (6) Chest pain: Code(s): R07.9 - Chest pain, unspecified Status: Acute Assessment and Plan: * reports chest pain sternal no radiation * chest x-ray: No acute cardiopulmonary disease * chest CTA no PE * EKG shows sinus rhythm (7) Orthostatic hypertension: Code(s): I10 - Essential (primary) hypertension Status: Acute Assessment and Plan: * Layin/90, Sittin/100, Standin/81 * Start patient on lisinopril 10mg PO * Trend BP * Adjust therapy as needed Time Spent With Patient Time with patient: Greater than 35 minutes Subjective Date/time seen: 01/20/21 08:00 Interval history: Date/Time: 01/20/21 03:50 Narrative: This is a 35-year-old female with past medical history significant for migraines, morbid obesity. Patient presented to the emergency room after she had a syncopal episode she had been to the emergency room 2 days prior to to the night where she had a workup done for acute chest pain that turned out nonrevealing and she was sent home. Tonight the patient comes back to the emergency room after she had a syncopal episode while she got up went to the kitchen while standing and walk up to a sternal rub was laying on the floor her blood pressure at that time systolic was 160 and he was measured by 1 of her family members she was brought to the emergency room while in the emergency room she got up and she had another syncopal episode. Preliminary workup again has been essentially nonrevealing. Patient states that she has been having nausea and vomiting for the last several days has not been able to keep anything down she denies any fevers, chills, rigors, cough, sputum production, abdominal pain or diarrhea, has had some weight loss as a result of these. Patient was noted to be
--- NOTE | 2021-01-20 08:00 | PM.IMPN ---
Progress Note: A&P Assessment and Plan (1) Orthostatic syncope: Code(s): I95.1 - Orthostatic hypotension Status: Acute Assessment and Plan: HX of seizures, took Keppra, but experienced mental changes One episode prior to arrival and one episode in the ED Head CT Normal brain Carotid doppler: no stenosis Bilaterally Neurology consult thank you for your recommendations IV fluids LR 80ml/hr Monitor I's and O's CTA No PE or cardiopulmonary disease ECG SR EEG ordered Wonder if BP is playing a role in the syncope (2) Nausea and vomiting: Code(s): R11.2 - Nausea with vomiting, unspecified Status: Acute Assessment and Plan: Seems to be resolved at this time Natalie ordered Heart healthy diet, and stated that she was hungry. (3) Morbid obesity with BMI of 40.0-44.9, adult: Code(s): E66.01 - Morbid (severe) obesity due to excess calories; Z68.41 - Body mass index [BMI] 40.0-44.9, adult Status: Acute Assessment and Plan: Lifestyle and diet modifications (4) Hypertension: Code(s): I10 - Essential (primary) hypertension Status: Acute Assessment and Plan: Looks to be hypertensive 120-170 systolically Will continue to trend Awaiting orthostatic pressures as well (5) Abdominal pain: Code(s): R10.9 - Unspecified abdominal pain Status: Acute Assessment and Plan: complaining of intermittent lower left abdominal pain looks as if she get a GI cocktail in the ED Carafate and Protonix started abdominal ultrasound unremarkable supportive care (6) Chest pain: Code(s): R07.9 - Chest pain, unspecified Status: Acute Assessment and Plan: reports chest pain sternal no radiation chest x-ray: No acute cardiopulmonary disease chest CTA no PE EKG shows sinus rhythm (7) Orthostatic hypertension: Code(s): I10 - Essential (primary) hypertension Status: Acute Assessment and Plan: Layin/90, Sittin/100, Standin/81 Start patient on lisinopril 10mg PO Trend BP Adjust therapy as needed Time Spent With Patient Time with patient: Greater than 35 minutes Subjective Date/time seen: 01/20/21 08:00 Interval history: Date/Time: 01/20/21 03:50 Narrative: This is a 35-year-old female with past medical history significant for migraines, morbid obesity. Patient presented to the emergency room after she had a syncopal episode she had been to the emergency room 2 days prior to to the night where she had a workup done for acute chest pain that turned out nonrevealing and she was sent home. Tonight the patient comes back to the emergency room after she had a syncopal episode while she got up went to the kitchen while standing and walk up to a sternal rub was laying on the floor her blood pressure at that time systolic was 160 and he was measured by 1 of her family members she was brought to the emergency room while in the emergency room she got up and she had another syncopal episode. Preliminary workup again has been essentially nonrevealing. Patient states that she has been having nausea and vomiting for the last several days has not been able to keep anything down she denies any fevers, chills, rigors, cough, sputum production, abdominal pain or diarrhea, has had some weight loss as a result of these. Patient was noted to be orthostatic she has been admitted for further management assessment and treatment. A CT did not show pulmonary embolism a chest x-ray did not show any infiltrates. Date/Time Seen: 01/20/21 08:00 This morning I was called by nursing that the patient was having chest pain. Patient stated that her chest pain is dull without radiation. She did say that she had radiation to her jaw yesterday however not at this time. She was more concerned because every time she has chest pain she does have a sync
[2021-01-20] MEDS: oxyCODONE HCL (*CRX) 2.5 MG TAB IR PO ×2 (10:46→17:43)
[2021-01-20] MEDS: PANTOPRAZOLE SODIUM IV 40 MG VIAL IV PUSH ×2 (10:47→17:18)
--- NOTE | 2021-01-20 11:04 | WPDNEURCNPN ---
Assessment and Plan Additional Plan 1 vasovagal syncope 2. Orthostatic hypotension. Plan is to document orthostatic hypotension while she is here in addition to obtaining the EEG to rule out the remote possibility of seizure in addition to the cardiac evaluation Consult date: 01/20/21 HPI: Brandy Yip is a 35 year old femaleAdmitted to the hospital for the complaints of syncopal episodes patient carries the diagnosis of 1. Migraine 2. History of interstitial cystitis 3. Never smoker or drinker 4. No specific history of home medications. Patient presented to the emergency room subsequently having had a syncopal episode she had been in the emergency room 2 days previously as well when she woke up acute chest pain but the evaluation at that time in the emergency room was negative this time she got up went to the kitchen while standing and was walking up to sternal rub was laying down on the floor her blood pressure at that time 160 and was measured by 1 of her family members in the emergency room she got up and she had another syncopal episodes she has also been complaining of nausea and vomiting patient was not noted to be orthostatic in the ER he was admitted for further evaluation a CT did not show pulmonary embolism and also chest x-ray did not reveal any infiltration Review of Systems Review of Systems: All systems reviewed & are unremarkable except as noted in HPI and below PMFSH Past Medical History Medical History Interstitial cystitis Migraines Surgical History Surgical History History of tubal ligation Family History Family History Son Immunocompromised Sibling Immunocompromised Grandparent Cancer Hypertension Diabetes mellitus Congestive heart failure Cerebrovascular accident History of blood clots Acute myocardial infarction Father Cancer Hypertension Social History Social History Smoking status: Never smoker Alcohol intake: never Substance use: never Substance use type: does not use Spiritual care concerns: No Meds Home Medications and Allergies Home Medications Medication Instructions Recorded Confirmed Type No Home Medications 01/20/21 01/20/21 History Allergies Allergy/AdvReac Type Severity Reaction Status Date / Time Quinolones Allergy Severe swelling Verified 01/20/21 01:02 of tongue and lips ciprofloxacin Allergy Mild Other Verified 01/20/21 01:02 Sulfa (Sulfonamide Allergy Mild swelling, Verified 01/20/21 01:02 Antibiotics) SOB terbutaline Allergy Mild Other Verified 01/20/21 01:02 adhesive Allergy Unknown Other Verified 01/20/21 01:02 peanut Allergy Anaphylaxis Verified 01/20/21 01:02 pine nut Allergy Anaphylaxis Verified 01/20/21 01:02 tree nut Allergy Anaphylaxis Verified 01/20/21 01:02 naproxen AdvReac Swelling Verified 01/20/21 01:02 Vital Signs Vital Signs - 24 hr 01/19/21 19:01 01/19/21 19:35 01/19/21 19:37 Temperature 36.2 C L Pulse Rate 73 79 80 Respiratory Rate 18 25 H 18 Blood Pressure 164/110 H 165/92 H Pulse Oximetry 99 01/19/21 19:45 01/19/21 20:05 01/19/21 20:06 Temperature Pulse Rate 79 88 90 Respiratory Rate 20 21 H 22 H Blood Pressure 158/94 H 150/93 H Pulse Oximetry 01/19/21 20:15 01/19/21 20:30 01/19/21 20:31 Temperature Pulse Rate 73 70 80 Respiratory Rate 20 20 23 H Blood Pressure 145/78 H 142/79 H Pulse Oximetry 01/19/21 20:45 01/19/21 20:46 01/19/21 21:00 Temperature Pulse Rate 80 79 78 Respiratory Rate 13 19 22 H Blood Pressure 156/91 H 140/96 H Pulse Oximetry 01/19/21 21:01 01/20/21 00:03 01/20/21 04:00 Temperature Pulse Rate 75 77 84 Respiratory Rate 29 H 16 Blood Pressure 140/85 Pulse Oximetry 97 Exam Narrative: examination revealed
[2021-01-20] MEDS: lisinopriL 10 MG TABLET PO (15:32)
[2021-01-21] VITALS (11 sets, daily range): BP systolic 100–153; BP diastolic 54–90; PULSE 64–86; RESP 12–20; TEMP 35.8–36.5; O2SAT 98–100
[2021-01-21] MEDS: LACTATED RINGERS 1,000 ML 80 ML IV CONT (03:51)
[2021-01-21] MEDS: SUCRALFATE SUSP 100 MG/ML 10 ML UDC 1000 MG PO ×4 (06:10→20:49)
[2021-01-21 06:50] LABS: Basophils Percent Auto 0.6 % (0.2-1.2); Eosinophils Absolute Auto 0.1 K/mm3 (0-0.3); Eosinophils Percent Auto 1.7 % (0-4.4); Hematocrit 37.5 % (37.0-47.0); Hemoglobin 12.3 g/dL (12.0-15.0); Immature Granulocyte Absolute 0.02 K/mm3 (0.00-0.031); Immature Granulocyte Percent A 0.3 % (0-0.5); Lymphocytes Absolute Auto 1.57 K/mm3 (0.9-3.2); Mean Corpuscular HGB Conc 32.8 g/dl (32-36); Mean Corpuscular Volume 85.2 fl (80-100); Mean Platelet Volume 10.3 fl (7.4-10.4); Monocytes Absolute Auto 0.5 K/mm3 (0.1-0.6); Monocytes Percent Auto 8.3 % (2.6-8.5); Neutrophils Percent Auto 64.1 % (45.5-73.1); Platelet Count Result 254 k/mm3 (150-375); Red Cell Distribution Width 13.3 % (11.5-14.5); White Blood Count 6.3 K/mm3 (4.5-10.0)
[2021-01-21 07:02] LABS: Alanine Aminotransferase 12 U/L (4-35); Albumin Level 3.3 g/dL (3.5-5.1); Alkaline Phosphatase 63 U/L (38-126); Anion Gap 3 mmol/L (8-16); Aspartate Amino Transferase 15 U/L (14-36); Bilirubin,Total 0.4 mg/dL (0.2-1.3); Blood Urea Nitrogen 9 mg/dL (7-17); Calcium 8.8 mg/dL (8.4-10.2); Carbon Dioxide 30 mmol/L (22-30); Chloride 106 mmol/L (98-107); Estimated CRCL calculation 113 ml/min; Estimated Glomerular Filt Rate > 60; Glucose 102 mg/dL (65-110); Potassium 3.7 mmol/L (3.4-5.0); Sodium 139 mmol/L (137-145)
[2021-01-21] MEDS: lisinopriL 10 MG TABLET PO (08:44)
[2021-01-21] MEDS: PANTOPRAZOLE SODIUM IV 40 MG VIAL IV PUSH ×2 (08:44→17:38)
--- NOTE | 2021-01-21 15:28 | PM.IMPN ---
Progress Note: A&P Assessment and Plan (1) Orthostatic syncope: Code(s): I95.1 - Orthostatic hypotension Status: Acute Assessment and Plan: Patient with a syncopal episode associated with chest pain. She does have a history of seizures and Keppra in the past but this was stopped due to mental status changes. Workup thus far has been unrevealing with a normal right upper quadrant ultrasound, CTA negative for PE, troponin negative x3, carotid ultrasound normal and CT brain normal. EEG ordered was results pending. Not orthostatic on recent vital signs. Will check echocardiogram. Cardiology consult. Follow up on EEG results. Will check left lower extremity venous Doppler but felt DVT less likely. Consider pheochromocytoma. Stop IV fluids. Check TSH, B12. Consider ST A/P. NPO after MN in case stres test recommended. (2) Nausea and vomiting: Code(s): R11.2 - Nausea with vomiting, unspecified Status: Acute Assessment and Plan: Patient with complaints of nausea vomiting. Symptoms resolved. Zofran available as needed. Continue current diet. (3) Morbid obesity with BMI of 40.0-44.9, adult: Code(s): E66.01 - Morbid (severe) obesity due to excess calories; Z68.41 - Body mass index [BMI] 40.0-44.9, adult Status: Acute Assessment and Plan: BMI 40. Lifestyle and diet modifications (4) Hypertension: Code(s): I10 - Essential (primary) hypertension Status: Acute Assessment and Plan: Concern for orthostatic syncope but BP okay. She was started on lisinopril. Will monitor for now. (5) Abdominal pain: Code(s): R10.9 - Unspecified abdominal pain Status: Acute Assessment and Plan: Patient complains of intermittent abdominal pain left lower quadrant (maybe epigastric to other providers?). Upper quadrant ultrasounds normal. She was started on Protonix and Carafate. Symptoms appear to have resolved. Consider CT A/P. (6) Chest pain: Code(s): R07.9 - Chest pain, unspecified Status: Acute Assessment and Plan: As above. Troponins negative x3. EKG showing normal sinus rhythm. Concerning for malignant arrhythmia low she has had this evaluated the past without clear etiology. Telemetry showing no significant dysrhythmias. Cardiology consult. Continue to monitor for now on telemetry. (7) DVT prophylaxis: Code(s): Z29.9 - Encounter for prophylactic measures, unspecified Status: Acute Assessment and Plan: Kayla Subjective Date/time seen: 01/21/21 15:28 Interval history: 35yo female here for syncopal episode. Assuming care. Chart reviewed. Patient has a history of syncopal episodes with workup in the past to include echocardiogram and Holter monitor. She says that she was placed on a beta-dilma but this was held because of bradycardia. His workup was many years ago. Patient states that she developed sharp chest pain because her to gasp than the chest pain became squeezing. It radiated but her right shoulder and jaw. She had feeling of impending doom but denies any flushing. She felt lightheaded with palpitations prior to the syncopal episode. She feels well now. Complaints today. She still has slight chest discomfort but nothing significant. Weight loss 20+ pounds unexplained. Exam Narrative: AF 97.1 145/78 64 18 98% ra Gen - NARD Chest - CTA bilaterally, nml RR CV - RRR S1/S2. Telemetry showing no significant dysrhythmias Abd - Soft, NT/ND, Positive BS Ext - No pedal edema. Positive Homans sign on the left. Neuro - Alert and oriented. Nonfocal exam. Psych - Nml mood and affect Skin - Warm and dry Objective Data Vital Signs Vital Signs: Vital Signs - 24 hr 01/20/21 16:00 01/20/21 20:00 01/20/21 20:58 Temperature 97.2 F L Pulse Rate 77 84 84 Respiratory Rate 18 Blood Pressure 116/64 119/70 Pulse Oximetry 99 98 01/20/21 22:00 01/21/21 00:00
[2021-01-21] MEDS: diphenhydrAMINE HCl CAP 25 MG CAPSULE PO (22:51)
[2021-01-22] VITALS (9 sets, daily range): BP systolic 128–145; BP diastolic 67–77; PULSE 65–84; RESP 14–18; TEMP 36.3; O2SAT 97–100
--- NOTE | 2021-01-22 | ECHO_ITS ---
Patient Info Name: Brandy Yip Age: 35 years : 1985 Gender: Female Ht: 64 in Wt: 232 lbs BSA: 2.23 m2 HR: 60 bpm BP: 127 / 65 mmHg Technical Quality: Good Exam Date: 01/22/2021 9:03 AM Exam Location: [facility] Pulmonary Exam Room: 309 Patient Status: Inpatient Admit Date: 01/19/2021 Staff Ordering Physician: Dami Smith MD Cattle Sprayer: Anjana Farris RDCS Attending Provider: Rekha Soto MD Exam Type: CA echo doppler color flow Study Info Indications - SYNCOPE Complete two-dimensional, color flow and Doppler transthoracic echocardiogram is performed. Summary 1. Complete two-dimensional, color flow and Doppler transthoracic echocardiogram is performed. 2. Left ventricular systolic function is normal, estimated at 65-70%. 3. The left ventricular diastolic function is normal. 4. There is mild tricuspid valve regurgitation. 5. No pulmonary hypertension, estimated pulmonary arterial systolic pressure is 36 mmHg. 6. There is trivial pericardial effusion. Left Ventricle Left ventricular chamber dimension is normal. Left ventricular systolic function is normal, estimated at 65-70%. There is no increased left ventricular wall thickness. Left ventricular septal wall motion is normal. The left ventricular diastolic function is normal. Right Ventricle Right ventricular chamber dimension is normal. Right ventricular systolic function is normal. Left Atria Left atrial chamber dimension is normal. Right Atria Right atrial chamber dimension is normal. Atrial Septum Intact interatrial septum visualized by color flow imaging. Aortic Valve The aortic valve is trileaflet. There is no aortic valve sclerosis. There is no aortic valve stenosis. There is no aortic valve regurgitation. Pulmonic Valve The pulmonic valve is normal. There is no pulmonic valve stenosis. There is no pulmonic regurgitation. Mitral Valve The mitral valve has normal leaflets. There is no mitral valve stenosis. There is no mitral valve regurgitation. Tricuspid Valve The tricuspid valve leaflets are normal. There is no significant tricuspid valve stenosis. There is mild tricuspid valve regurgitation. No pulmonary hypertension, estimated pulmonary arterial systolic pressure is 36 mmHg. Pericardium/Pleural There is trivial pericardial effusion. Inferior Vena Cava Normal inferior vena cava with >50% collapse upon inspiration consistent with normal right atrial pressure, 5 mmHg. Aorta The aortic root size at the sinus of Valsalva is normal. The prox ascending aorta size is normal. Left Ventricular Outflow Tract Name Value Normal LVOT 2D LVOT Diameter 2.0 cm LVOT Doppler LVOT Peak Gradient 4 mmHg LVOT Mean Gradient 3 mmHg LVOT VTI 23 cm LVOT VTI/AV VTI Ratio 0.9 LVOT Stroke Volume 71 ml LVOT CO 13.9 l/min LVOT CI 6.7 l/min/m2 Pulmonic Valve ------
[2021-01-22] MEDS: diphenhydrAMINE HCl CAP 25 MG CAPSULE PO (06:04)
[2021-01-22 07:49] LABS: Anion Gap 5 mmol/L (8-16); Blood Urea Nitrogen 9 mg/dL (7-17); Calcium 8.7 mg/dL (8.4-10.2); Carbon Dioxide 26 mmol/L (22-30); Chloride 103 mmol/L (98-107); Estimated CRCL calculation 113 ml/min; Estimated Glomerular Filt Rate > 60; Glucose 95 mg/dL (65-110); Magnesium 1.8 mg/dL (1.6-2.3); Phosphorus 3.2 mg/dL (2.5-4.5); Potassium 3.8 mmol/L (3.4-5.0); Sodium 134 mmol/L (137-145)
[2021-01-22] MEDS: lisinopriL 10 MG TABLET PO (09:38)
[2021-01-22] MEDS: PANTOPRAZOLE SODIUM IV 40 MG VIAL IV PUSH (09:38)
[2021-01-22] MEDS: ENOXAPARIN 40 MG/0.4 ML SYRINGE SUB-Q (09:38)
--- NOTE | 2021-01-22 10:35 | PM.CNCAR ---
Assessment and Plan Additional Plan Syncope likely vasovagal vs orthostatic, chest pain with normal EKG, negative cardioac enzymes * 3, BP is controlled, ECHO is unremarkable, plan no further work up needed, f/u in clinic, cardiioogy will sign off. History of Present Illness History of Present Illness Consult date/time: 01/22/21 10:35 Reason For Visit: Syncope, Costochondritis Narrative: Patient presented with chest pain started Monday, recurrent, lasted for seconds to hours, mid sternal non radiating, sharp, worse with breathing, she presented to ER and discharged but came back with recurrent pain and she also had episode of syncope when she get up from lying flat and started feeling dizzy and then passed out for minutes with no body injuries. She had no prior similar problems. Her BP was elevated when EMS arrived at 160s. Review of Systems Review of Systems: All systems reviewed & are unremarkable except as noted in HPI and below PMFSH Past Medical History Medical History Interstitial cystitis Migraines Surgical History Surgical History History of tubal ligation Family History Family History Son Immunocompromised Sibling Immunocompromised Grandparent Cancer Hypertension Diabetes mellitus Congestive heart failure Cerebrovascular accident History of blood clots Acute myocardial infarction Father Cancer Hypertension Social History Social History Smoking status: Never smoker Alcohol intake: never Substance use: never Substance use type: does not use Spiritual care concerns: No Meds Home Medications and Allergies Home Medications Medication Instructions Recorded Confirmed Type No Home Medications 01/20/21 01/20/21 History Allergies Allergy/AdvReac Type Severity Reaction Status Date / Time Quinolones Allergy Severe swelling Verified 01/20/21 01:02 of tongue and lips ciprofloxacin Allergy Mild Other Verified 01/20/21 01:02 Sulfa (Sulfonamide Allergy Mild swelling, Verified 01/20/21 01:02 Antibiotics) SOB terbutaline Allergy Mild Other Verified 01/20/21 01:02 adhesive Allergy Unknown Other Verified 01/20/21 01:02 peanut Allergy Anaphylaxis Verified 01/20/21 01:02 pine nut Allergy Anaphylaxis Verified 01/20/21 01:02 tree nut Allergy Anaphylaxis Verified 01/20/21 01:02 naproxen AdvReac Swelling Verified 01/20/21 01:02 Vital Signs Vital Signs - 24 hr 01/21/21 12:00 01/21/21 14:00 01/21/21 16:00 Temperature 36.5 C Pulse Rate 86 73 86 Respiratory Rate 20 Blood Pressure 120/83 Pulse Oximetry 99 01/21/21 17:00 01/21/21 20:00 01/21/21 22:00 Temperature 35.8 C L Pulse Rate 81 68 Respiratory Rate 12 Blood Pressure 148/89 H 127/65 Pulse Oximetry 100 01/22/21 00:00 01/22/21 04:00 01/22/21 06:20 Temperature 36.3 C L Pulse Rate 66 65 77 Respiratory Rate 14 Blood Pressure 145/77 H Pulse Oximetry 100 Results Labs and Meds Result diagrams: 01/21/21 06:07 01/22/21 07:08 Lab results: Comprehensive Metabolic Panel 01/22/21 Range/Units 07:08 Sodium 134 L (137-145) mmol/L Potassium 3.8 (3.4-5.0) mmol/L Chloride 103 (98-107) mmol/L Carbon Dioxide 26 (22-30) mmol/L BUN 9 (7-17) mg/dL Creatinine 0.70 (0.7-1.0) mg/dL Glucose 95 (65-110) mg/dL Calcium 8.7 (8.4-10.2) mg/dL Intake and Output 01/21/21 01/22/21 01/22/21 23:59 07:59 15:59 Intake Total 910 Output Total 300 Balance 610 Intake: Oral 910 Output: Urine 300 Other: # Unmeasured Voids 2 2 # Bowel Movements 1 Imaging and Cardiology Echo: image reviewed (Preliminary read with no abnormal findings ) EKG results: image reviewed (NSR- incomplete RBBB) Quality VTE Prophylaxi
[2021-01-22 11:19] LABS: Folic Acid 6.6 ng/mL (2.76->20)
[2021-01-22] MEDS: SUCRALFATE SUSP 100 MG/ML 10 ML UDC 1000 MG PO (11:21)
--- NOTE | 2021-01-22 13:05 | WPDNEUROLOGY ---
Neurology EEG Report General Information Date of Study: 01/20/21 TEST eeg DIAGNOSIS syncopal episode with blackout CONDITION OF RECORDING awake drowsy and sleep EEG NUMBER [id number] CLINICAL HISTORY patient reported she has been experiencing chest and abdominal discomfort with loss of consciousness. EEG DESCRIPTION Background rhythm consists of medium voltage 8 to 10 hertz per 2nd alpha posteriorly admixed with minimal amount of low-voltage 15 to 18 hertz per 2nd beta. During drowsiness low-voltage beta activity seen diffusely admixed with waxing and waning posterior alpha rhythm. Bilateral symmetrical sleep activity seen with symmetrical spindles. Non paroxysmal. Nonfocal. Nonlateralizing. IMPRESSION Normal record
--- NOTE | 2021-01-22 13:18 | WPDNEUROPN ---
Progress Note: A&P Additional Plan vaso vagal syncope with no orthostasis in the hospital ,all studies reviewed and normal ,explained to the patient Time Spent With Patient Time with patient: less than 15 minutes Subjective Date/time seen: follow up visit 01/22/21 13:18 Review of Systems Review of Systems: All systems reviewed & are unremarkable except as noted in HPI and below Exam Const: General: cooperative, healthy appearing, comfortable, no acute distress and well developed HENMT: Head: normal to inspection Ears: hearing grossly normal bilaterally General nose exam: Normal external nose present Face and sinus: normal facial exam Mouth: Yes Normal oral and palatal mucosa present Eyes: General: appearance normal, both eyes and all related structures Visual Newman: normal visual newman by confrontation Alignment and Position: alignment normal Periorbital: periorbital findings normal Eyelids: eyelids normal Conjunctivae: conjunctivae normal Sclera: sclerae normal Cornea: corneas normal Pupils: Equal, round and reactive pupils present EOM: EOMs intact bilaterally Direct Ophthalmoscopy: normal light reflex Neck: Neck: normal visual inspection and full ROM Carotids: normal carotid upstroke Lymphatic: no lymphadenopathy noted Resp: Effort & Inspection: normal respiratory effort and able to speak in complete sentences Auscultation: clear to auscultation bilaterally Cardio: Jugular venous distension: no JVD Rate: regular rate Skin: General skin exam: normal color and no rashes or lesions noted Neuro: General: oriented to person, oriented to place and oriented to time Cranial nerves: Yes CN's II-XII intact bilaterally Cognition (Neuro): normal cognition Speech: normal speech Gait exam (Neuro): Normal gait present Motor exam (neuro): 5/5 motor strength present throughout Sensory Exam: normal sensation Deep tendon reflexes (DTR's): Right triceps reflex intensity grade: 1+, Rt Biceps (C5, C6): 1+, Left biceps reflex intensity grade: 1+, Right brachioradialis reflex intensity grade: 1+, Left brachioradialis reflex intensity grade: 1+, Right patellar reflex intensity grade: 1+, Left patellar reflex intensity grade: 1+, Right ankle reflex intensity grade: 1+ and Left ankle reflex intensity grade: 1+ Plantar Reflex Responses: downgoing: bilateral Coordination: [id number] test normal Psych: Appearance: grossly normal Mental Status: mental status grossly normal Speech and movement: Normal speech and movement present Affect: normal affect Attitude: cooperative Thought process: Normal thought process present Thought content: Yes Normal thought content present Insight: Good insight present (Psych) Judgement: Good judgement present (Psych) Objective Data Vital Signs Vital Signs: Vital Signs - 24 hr 01/21/21 14:00 01/21/21 16:00 01/21/21 17:00 Temperature 36.5 C Pulse Rate 73 86 Respiratory Rate 20 Blood Pressure 120/83 148/89 H Pulse Oximetry 99 01/21/21 20:00 01/21/21 22:00 01/22/21 00:00 Temperature 35.8 C L Pulse Rate 81 68 66 Respiratory Rate 12 Blood Pressure 127/65 Pulse Oximetry 100 01/22/21 04:00 01/22/21 06:20 01/22/21 08:00 Temperature 36.3 C L Pulse Rate 65 77 70 Respiratory Rate 14 Blood Pressure 145/77 H Pulse Oximetry 100 01/22/21 12:00 Temperature Pulse Rate 80 Respiratory Rate Blood Pressure Pulse Oximetry Intake/Output Intake/Output: Intake & Output 01/19/21 01/20/21 01/21/21 01/22/21 23:59 23:59 23:59 23:59 Intake Total 2380 3140 Output Total 300 Balance 2380 2840 Meds/Results Medications: Active Medications Generic Name Dose Route Start Last Admin Trade Name Freq PRN Reason Stop Dose Admin Diphenhydramine HCl 25 mg 01/21/21 22:02 01/22/21 06:04 Diphenhydramine Hcl Cap 25 Mg Capsule PO 25 mg Q6H PRN Administration Congestion Enoxaparin Sodium 40 mg 01/22/21 09:00 01/22/21 09:38 Enoxaparin 4
--- NOTE | 2021-01-22 13:26 | PM.IMPN ---
Progress Note: A&P Assessment and Plan (1) Orthostatic syncope: Code(s): I95.1 - Orthostatic hypotension Status: Acute Assessment and Plan: Patient with a syncopal episode associated with chest pain. She does have a history of seizures and Keppra in the past but this was stopped due to mental status changes. Workup thus far has been unrevealing with a normal right upper quadrant ultrasound, CTA negative for PE, troponin negative x3, carotid ultrasound normal and CT brain normal. EEG ordered was results pending. Not orthostatic on recent vital signs. Will check echocardiogram. Cardiology consult. Follow up on EEG results. Will check left lower extremity venous Doppler but felt DVT less likely. Consider pheochromocytoma. Stop IV fluids. Check TSH, B12. Consider ST A/P. NPO after MN in case stres test recommended. 01/22/2021 interval history: today patient states feeling much better denies any abdominal pain nausea or vomiting, patient with chest pain and syncopal episode carotid ultrasound is negative, cardiac echo is pending, seen by neurology suspects most likely vasovagal episode, CT scan of abdomen today did not show any significant pathology, will have a PT OT evaluate the patient and further recommendation to follow. (2) Nausea and vomiting: Code(s): R11.2 - Nausea with vomiting, unspecified Status: Acute Assessment and Plan: Patient with complaints of nausea vomiting. Symptoms resolved. Zofran available as needed. Continue current diet. (3) Morbid obesity with BMI of 40.0-44.9, adult: Code(s): E66.01 - Morbid (severe) obesity due to excess calories; Z68.41 - Body mass index [BMI] 40.0-44.9, adult Status: Acute Assessment and Plan: BMI 40. Lifestyle and diet modifications (4) Hypertension: Code(s): I10 - Essential (primary) hypertension Status: Acute Assessment and Plan: Concern for orthostatic syncope but BP okay. She was started on lisinopril. Will monitor for now. (5) Abdominal pain: Code(s): R10.9 - Unspecified abdominal pain Status: Acute Assessment and Plan: Patient complains of intermittent abdominal pain left lower quadrant (maybe epigastric to other providers?). Upper quadrant ultrasounds normal. She was started on Protonix and Carafate. Symptoms appear to have resolved. Consider CT A/P. (6) Chest pain: Code(s): R07.9 - Chest pain, unspecified Status: Acute Assessment and Plan: As above. Troponins negative x3. EKG showing normal sinus rhythm. Concerning for malignant arrhythmia low she has had this evaluated the past without clear etiology. Telemetry showing no significant dysrhythmias. Cardiology consult. Continue to monitor for now on telemetry. (7) DVT prophylaxis: Code(s): Z29.9 - Encounter for prophylactic measures, unspecified Status: Acute Assessment and Plan: Lovenox Subjective Date/time seen: 01/22/21 13:27 Interval history: 35yo female here for syncopal episode. Assuming care. Chart reviewed. Patient has a history of syncopal episodes with workup in the past to include echocardiogram and Holter monitor. She says that she was placed on a beta-dilma but this was held because of bradycardia. His workup was many years ago. Patient states that she developed sharp chest pain because her to gasp than the chest pain became squeezing. It radiated but her right shoulder and jaw. She had feeling of impending doom but denies any flushing. She felt lightheaded with palpitations prior to the syncopal episode. She feels well now. Complaints today. She still has slight chest discomfort but nothing significant. Weight loss 20+ pounds unexplained. 01/22/2021 interval history: today patient states feeling much better denies any abdominal pain nausea or vomiting, patient with chest pain and syncopal episode carotid ultrasound is negative, cardiac
--- NOTE | 2021-01-22 16:17 | PM.DS ---
DS: Admitting Diagnosis Discharge Date 01/22/2021 Admitting Diagnosis Chief Complaint: Syncope DS: Discharge Diagnosis Discharge Diagnosis (1) Orthostatic syncope: Code(s): I95.1 - Orthostatic hypotension Status: Acute Assessment and Plan: Patient with a syncopal episode associated with chest pain. She does have a history of seizures and Keppra in the past but this was stopped due to mental status changes. Workup thus far has been unrevealing with a normal right upper quadrant ultrasound, CTA negative for PE, troponin negative x3, carotid ultrasound normal and CT brain normal. EEG ordered was results pending. Not orthostatic on recent vital signs. Will check echocardiogram. Cardiology consult. Follow up on EEG results. Will check left lower extremity venous Doppler but felt DVT less likely. Consider pheochromocytoma. Stop IV fluids. Check TSH, B12. Consider ST A/P. NPO after MN in case stres test recommended. 01/22/2021 interval history: today patient states feeling much better denies any abdominal pain nausea or vomiting, patient with chest pain and syncopal episode carotid ultrasound is negative, cardiac echo is pending, seen by neurology suspects most likely vasovagal episode, CT scan of abdomen today did not show any significant pathology, will have a PT OT evaluate the patient and further recommendation to follow. (2) Nausea and vomiting: Code(s): R11.2 - Nausea with vomiting, unspecified Status: Acute Assessment and Plan: Patient with complaints of nausea vomiting. Symptoms resolved. Zofran available as needed. Continue current diet. (3) Morbid obesity with BMI of 40.0-44.9, adult: Code(s): E66.01 - Morbid (severe) obesity due to excess calories; Z68.41 - Body mass index [BMI] 40.0-44.9, adult Status: Acute Assessment and Plan: BMI 40. Lifestyle and diet modifications (4) Hypertension: Code(s): I10 - Essential (primary) hypertension Status: Acute Assessment and Plan: Concern for orthostatic syncope but BP okay. She was started on lisinopril. Will monitor for now. (5) Abdominal pain: Code(s): R10.9 - Unspecified abdominal pain Status: Acute Assessment and Plan: Patient complains of intermittent abdominal pain left lower quadrant (maybe epigastric to other providers?). Upper quadrant ultrasounds normal. She was started on Protonix and Carafate. Symptoms appear to have resolved. Consider CT A/P. (6) Chest pain: Code(s): R07.9 - Chest pain, unspecified Status: Acute Assessment and Plan: As above. Troponins negative x3. EKG showing normal sinus rhythm. Concerning for malignant arrhythmia low she has had this evaluated the past without clear etiology. Telemetry showing no significant dysrhythmias. Cardiology consult. Continue to monitor for now on telemetry. (7) DVT prophylaxis: Code(s): Z29.9 - Encounter for prophylactic measures, unspecified Status: Acute Assessment and Plan: Lovenox DS: Summary Hospital Course Reason for hospitalization: Chief Complaint: Syncope Narrative: This is a 35-year-old female with past medical history significant for migraines, morbid obesity. Patient presented to the emergency room after she had a syncopal episode she had been to the emergency room 2 days prior to to the night where she had a workup done for acute chest pain that turned out nonrevealing and she was sent home. Tonight the patient comes back to the emergency room after she had a syncopal episode while she got up went to the kitchen while standing and walk up to a sternal rub was laying on the floor her blood pressure at that time systolic was 160 and he was measured by 1 of her family members she was brought to the emergency room while in the emergency room she got up and she had another syncopal episode. Preliminary workup again has been essentially nonrevealing.
[2021-01-25 05:13] LABS: Metanephrine, Free 26 pg/mL (<=57); Normetanephrine, Free 80 pg/mL (<=148); Total, Free (MN + NMN) 106 pg/mL (<=205)
== END 2021-01-22 17:12 | disposition home or self-care (01) ==
LOC: ANHED 22:30 → ANH3MEDSUR 01-20 09:13
PROVIDERS: Internal Medicine; Nurse Practitioner; Admitting Provider Internal Medicine; Emergency Provider Emergency Medicine; Visit Provider Family Medicine
DX: R55 Syncope and collapse (principal); R07.9 Chest pain, unspecified; E66.01 Morbid (severe) obesity due to excess calories; R11.2 Nausea with vomiting, unspecified; R56.9 Unspecified convulsions; R10.9 Unspecified abdominal pain; M79.605 Pain in left leg; M79.604 Pain in right leg; Z68.41 Body mass index [BMI] 40.0-44.9, adult
CPT/HCPCS: 36415; 70450; 71275; 74177; 76705; 80048; 80053; 82607; 82746; 83690; 83735; 83835; 84100; 84443; 84484; 85025; 85610; 85730; 93005; 93306; 93880; 93970; 95816; 96361; 96372; 96374; 96376; 99285; A9270; C9113; G0378; J1650; J7120; Q9967

== ENCOUNTER 2021-03-03 19:39 | Observation (INO) | payer BC, SELFPAY ==
--- NOTE | ~2021-03-03 | MR_ITS ---
EXAMINATION: MR cervical spine wo con EXAM DATE: 03/05/2021 17:00 INDICATION: Neurologic symptoms, weakness . TECHNIQUE: Multi-sequential, multiplanar MR images of the cervical spine were obtained without contra st. Axial T2, axial T2 MERGE sequence. Sagittal T1, T2, T2 fat saturation images also obtained. Th ere is no prior study for comparison. FINDINGS: The vertebral bodies are aligned in the AP dimension. Vertebral body and disc heights are well-maintained. The spinal cord signal intensity and intrinsic morphology is normal. Cervicomedullar y junction is normal in appearance. There are no suspicious marrow signal abnormalities. Paraspinal s oft tissue is unremarkable. There is mild to moderate cervical facet arthropathy mild uncovertebral joint arthropathy without neural foraminal stenosis. Minimal disc bulges at C5-6 and 6-7 without cent ral canal stenosis. IMPRESSION: Mild to moderate cervical arthropathy, mild lower cervical disc disease. Reviewed, dictated and finalized at location A. TLE OPERATOR IMPRESSION: Mild to moderate cervical arthropathy, mild lower cervical disc di sease.
--- NOTE | ~2021-03-03 | MR_ITS ---
EXAMINATION: MR lumbar spine wo con DATE: 03/04/2021 12:47 INDICATION: Movement disorder. Right leg weakness. TECHNIQUE: Magnetic resonance imaging (MRI) of the lumbar spine was performed without intravenous con trast. Sequences included sagittal T2-weighted FSE, sagittal T2-weighted FS FSE, sagittal T1-weighted FSE, and axial T2-weighted FSE. COMPARISON: None FINDINGS: There is 3 degrees dextrocurvature of thoracolumbar spine. Vertebral body heights and inter vertebral disc heights are normal. The distal spinal cord signal intensity is normal. The conus medul manjula is at L1. The following disc levels are specifically discussed: L1-L2 through L3-L4: The disc does not extend beyond the endplate margin. There is no facet joint ost eoarthritis. There is no neural foraminal stenosis. There is no central canal stenosis. L4-L5: The disc is mildly bulging. There is mild bilateral facet joint osteoarthritis. There is mild bilateral neural foraminal stenosis. There is no central canal stenosis. L5-S1: The disc is mildly bulging and has an annular fissure. There is mild bilateral facet joint ost eoarthritis. There is mild bilateral neural foraminal stenosis. There is mild central canal stenosis. IMPRESSION: 1. Mild lumbar spondylosis. Reviewed, dictated and finalized at location A. OGY ASSOCIATE IMPRESSION: 1. Mild lumbar spondylosis.
--- NOTE | ~2021-03-03 | US_ITS ---
EXAMINATION: US carotid duplex BI DATE: 03/04/2021 17:17 INDICATION: Syncope. TECHNIQUE: Grayscale, color Doppler, and pulsed Doppler images of the cervical carotid arteries were obtained. The degree of vessel stenosis is placed in one of the following categories: normal, <50%, 5 0-69%, >=70% but less than near-occlusion, near-occlusion, or total occlusion. Note that percent sten osis relative to normal distal artery lumen diameter is indirectly measured from velocity measurement s as described by Gurpreet, et al. Radiology 2003; 229:340-346. COMPARISON: Ultrasound 01/20/2021 FINDINGS: RIGHT: The right common carotid artery (CCA) peak systolic velocity (PSV) is 115 cm/s. The right internal ca rotid artery (ICA) PSV is 94 cm/s. The right ICA end-diastolic velocity (EDV) is 37 cm/s. The right I CA/CCA PSV ratio is 0.8. Grayscale and color Doppler images yield an estimate of 0% diameter reductio n from plaque in the ICA. There is antegrade flow in the right vertebral artery. LEFT: The left CCA PSV is 149 cm/s. The left ICA PSV is 82 cm/s. The left ICA EDV is 21 cm/s. The left ICA/ CCA PSV ratio is 0.6. Grayscale and color Doppler images yield an estimate of 0% diameter reduction f rom plaque in the ICA. There is antegrade flow in the left vertebral artery. IMPRESSION: 1. Normal internal carotid arteries. Reviewed, dictated and finalized at location A. NOMY RESEARCH MANAGER
--- NOTE | ~2021-03-03 | CT_ITS ---
EXAMINATION: CT brain wo con EXAM DATE: 03/03/2021 20:09 INDICATION: facial droop/weakness . TECHNIQUE: Spiral CT of the head was performed without contrast. Axial, coronal and sagittal images were reviewed. The dose-length product (DLP) for this examination was 605.33 mGy-cm. The exposure w as tailored according to patient size, and iterative reconstruction (ASIR) was used as additional dos e reduction technique. Comparison is made to prior examination from 01/20/2021. FINDINGS: There is no acute intraparenchymal hemorrhage. No evidence of intraparenchymal brain mass lesion. No evidence of acute infarction. There is no mass effect or midline shift. The ventricles are normal in size. There are no extra-axial collections. There are no acute calvarial fractures. T he orbits are unremarkable. Soft tissue is unremarkable. The visualized sinuses and mastoid air sarita ls are well aerated. IMPRESSION: 1. No acute intracranial findings. As per stroke protocol, I called these results to emergency room, discussed with Dr. Peña at 2021 20:13 SERVICE DIRECTOR . Reviewed, dictated and finalized at location A. ICE DIRECTOR IMPRESSION: 1. No acute intracranial findings. As per stroke protocol, I called these results to emergency room, discussed wit h Dr. Peña at 03/03/2021 20:13 SERVICE DIRECTOR .
--- NOTE | ~2021-03-03 | MR_ITS ---
EXAMINATION: MR brain/brain stem wo con DATE: 03/04/2021 12:47 INDICATION: Syncope. TECHNIQUE: Magnetic resonance imaging (MRI) of the brain and brainstem was performed without intraven ous contrast. Sequences included sagittal and axial T1-weighted FSE, axial diffusion-weighted FS EPI, axial T2*-weighted GRE, axial T2-weighted FLAIR Propeller, and axial T2-weighted Propeller. Apparent diffusion coefficient (ADC) maps were created. COMPARISON: Brain MRI 01/26/2009 FINDINGS: There is no intracranial hemorrhage, acute infarction, or abnormal intracranial mass lesion . The ventricles are normal in size. The orbits are normal. There is mild mucosal thickening in the p aranasal sinuses. The mastoid air cells are normal. IMPRESSION: 1. Normal brain. Reviewed, dictated and finalized at location A. K DEALER IMPRESSION: 1. Normal brain.
--- NOTE | ~2021-03-03 | XR_ITS ---
EXAMINATION: XR chest 1V portable EXAM DATE: 03/03/2021 20:31 INDICATION: cva protocol; hx of HTN TECHNIQUE: Portable AP frontal chest x-ray was obtained. Comparison is made to prior examination from 01/19/2021. FINDINGS: The lungs are clear. There are no pleural effusions. The cardiomediastinal silhouette is within normal limits. There is no pneumothorax suspected. The bones and soft tissues are unremarkab le. IMPRESSION: No acute cardiopulmonary findings. Reviewed, dictated and finalized at location A. ER ROOM HELPER
[2021-03-03 19:56] VITALS: BP 137/79; PULSE 81; RESP 16; TEMP 36.7; O2SAT 100
--- NOTE | 2021-03-03 20:02 | ECG_ITS ---
Measurements Intervals [place] Rate: 78 P: 27 SC: 116 QRS: 68 QRSD: 105 T: 30 QT: 399 QTc: 457 Interpretive Statements SINUS RHYTHM BASELINE ARTIFACT- II, V1-V6 NORMAL ECG Electronically Signed On 03-04-2021 6:24:18 RISK ADVISOR by David Dunn D.O.
[2021-03-03 20:16] VITALS: BP 141/87; PULSE 84; RESP 16; O2SAT 96
[2021-03-03 20:19] LABS: Glucose Point of Care 94 mg/dl (65-105)
[2021-03-03 20:25] VITALS: BP 141/87; PULSE 84; RESP 18; O2SAT 98
[2021-03-03 20:48] LABS: Basophils Percent Auto 0.4 % (0.2-1.2); Eosinophils Percent Auto 0.4 % (0-4.4); Hematocrit 40.2 % (37.0-47.0); Immature Granulocyte Absolute 0.01 K/mm3 (0.00-0.031); Immature Granulocyte Percent A 0.2 % (0-0.5); Lymphocytes Absolute Auto 1.76 K/mm3 (0.9-3.2); Lymphocytes Percent Auto 33.8 % (18.3-44.2); Mean Corpuscular HGB Conc 34.8 g/dl (32-36); Mean Corpuscular Hemoglobin 28.9 pg (26-34); Mean Corpuscular Volume 83.1 fl (80-100); Mean Platelet Volume 9.9 fl (7.4-10.4); Monocytes Absolute Auto 0.4 K/mm3 (0.1-0.6); Monocytes Percent Auto 7.5 % (2.6-8.5); Neutrophils Percent Auto 57.7 % (45.5-73.1); Platelet Count Result 298 k/mm3 (150-375); Red Blood Count 4.84 M/mm3 (4.2-5.4); Red Cell Distribution Width 13.3 % (11.5-14.5); White Blood Count 5.2 K/mm3 (4.5-10.0)
[2021-03-03 21:00] LABS: Alanine Aminotransferase 18 U/L (4-35); Albumin Level 4.5 g/dL (3.5-5.1); Alkaline Phosphatase 73 U/L (38-126); Anion Gap 11 mmol/L (8-16); Aspartate Amino Transferase 27 U/L (14-36); Bilirubin,Total 0.6 mg/dL (0.2-1.3); Blood Urea Nitrogen 9 mg/dL (7-17); Calcium 9.2 mg/dL (8.4-10.2); Carbon Dioxide 22 mmol/L (22-30); Chloride 105 mmol/L (98-107); Estimated CRCL calculation 122 ml/min; Estimated Glomerular Filt Rate > 60; Glucose 96 mg/dL (65-110); Partial Thromboplastin Time 27.4 SECONDS (22.3-36.8); Potassium 4.2 mmol/L (3.4-5.0); Prothrombin Time 12.8 Seconds (11.1-14.7); Sodium 138 mmol/L (137-145)
[2021-03-03 21:05] LABS: Troponin I < 0.012 ng/mL (0.000-0.034)
[2021-03-03] MEDS: ONDANSETRON INJ 4 MG/2 ML VIAL IV PUSH (21:16)
[2021-03-03] MEDS: MORPHINE SULFATE (*CRX) 4 MG/ML INJ IV PUSH (21:17)
[2021-03-03 21:21] VITALS: BP 133/78; PULSE 79; RESP 18; O2SAT 97
[2021-03-03 22:10] VITALS: BP 122/60; PULSE 77; RESP 20; O2SAT 97
--- NOTE | 2021-03-03 22:16 | PC.NURSE ---
attempted to walk patient c/o dizziness when sitting, very unsteady difficulty lifting feet, took one step assisted back to bed with assistance of 2
--- NOTE | 2021-03-03 23:16 | PM.IMHP ---
H&P: HPI History of Present Illness Date/Time: 03/03/21 23:16 Chief Complaint: Syncope Narrative: This is a 35-year-old female with past medical history significant for hypertension, migraines. Patient was brought to the hospital by her after she had a syncopal episode when patient regained consciousness she noted that she could not use her right lower extremity, patient has been having syncopal episode since November of last year had admission on with workup in the hospital at that time which was nonrevealing. Patient has been in her usual state of health however she has a spells of dizziness and jerky movements of the legs she denies any fevers, any rigors ,any chills, any rashes, any vision changes, any joint pain ,no muscular pain, no paresthesias. Preliminary workup in emergency room was nonrevealing. Patient has been admitted for further evaluation management and treatment. Review of Systems Review of Systems: Patient has had syncopal episodes regaining consciousness spontaneously no aura no prodromes with it patient had a right lower extremity paralysis Constitutional: Constitutional: Denies chills, Denies fatigue, Denies fever(s), Denies lethargy, Denies malaise, Denies night sweats and Denies weakness Eyes: Eyes: Denies blind spots, Denies change in vision, Denies loss of peripheral vision, Denies loss of vision and Denies other visual disturbances ENT: Denies dysphagia, Denies vertigo, Denies headache(s) and Denies odynophagia Cardiovascular: Cardiovascular: Reports syncope, Denies pedal edema, Denies claudication, Denies leg edema, Denies radiating jaw, neck or arm pain, Denies palpitations, Denies dyspnea, Denies dyspnea on exertion and Denies orthopnea Respiratory: Respiratory: Denies chest congestion, Denies cough, Denies excessive phlegm production and Denies dyspnea Gastrointestinal: Gastrointestinal: Denies abdominal pain, Denies dyspepsia, Denies heartburn, Denies diarrhea, Denies nausea and Denies vomiting Genitourinary: Genitourinary: Denies dysuria Musculoskeletal: Musculoskeletal: Denies myalgias, Denies arthralgias, Denies joint swelling and Denies muscle weakness Integumentary/Breasts: Skin/Breast: Denies rash Neurologic: Reports syncope, Reports focal weakness, Denies Sensory deficit (Neuro), Denies paresthesias and Denies weakness Psychiatric: Psychiatric: Reports no additional psychiatric complaints and Reports as per HPI Endocrine: Endocrine: Denies cold intolerance, Denies heat intolerance, Denies polyphagia, Denies polydipsia, Denies polyuria and Denies palpitations Hematologic/Lymphatic: Hematologic/Lymphatic: Reports no additional hematologic/lymphatic complaints and Reports as per HPI Allergic/Immunologic: Allergic/Immunologic: Reports no additional allergic/immunologic complaints and Reports as per HPI PMFSH Past Medical History Medical History Interstitial cystitis Migraines Surgical History Surgical History History of tubal ligation Family History Family History Son Immunocompromised Sibling Immunocompromised Grandparent Cancer Hypertension Diabetes mellitus Congestive heart failure Cerebrovascular accident History of blood clots Acute myocardial infarction Father Cancer Hypertension Social History Social History Smoking status: Never smoker Alcohol intake: never Substance use: never Substance use type: does not use Spiritual care concerns: No Meds Home Medications and Allergies Home Medications Medication Instructions Recorded Confirmed Type lisinopril 10 mg PO DAILY #30 tablet 01/22/21 Rx pantoprazole [Protonix] 40 mg PO BID #60 tablet 01/22/21 Rx sucralfate 1,000 mg PO ACHS #420 ml 01/22/21 Rx Allergies Allergy/AdvReac
--- NOTE | 2021-03-03 23:36 | ED.NEUROSD ---
HPI - Neuro Symptoms/Deficit General Chief Complaint: Neuro Symptoms/Deficit Stated Complaint: blood pressure decreases/syncopy Time Seen by Provider: 03/03/21 20:11 Source: patient and family Mode of arrival: wheelchair Limitations: altered mental status History of Present Illness HPI Narrative: 35-year-old with a history of hypertension, orthostatic hypotension history of recurrent syncopal episode here with complaints of having a syncopal episode and headache, unable to walk. Patient states that last week she was using her walker and she started feeling better and this evening she was at home passed out . He states that she has been dealing with this orthostatic hypotension for quite some time. Patient denies any chest pain or shortness of breath or palpitation prior to the event. No history of nausea or vomiting. Onset (ago): hour(s) (1) Timing confirmed by: spouse History of same: Yes Severity: moderate Quality: weak Relieving factors: none Exacerbating factors: none Context: sudden onset Associated symptoms: headaches Treatments Prior to Arrival: none Related Data Allergies Allergy/AdvReac Type Severity Reaction Status Date / Time Quinolones Allergy Severe swelling Verified 01/20/21 01:02 of tongue and lips ciprofloxacin Allergy Mild Other Verified 01/20/21 01:02 Sulfa (Sulfonamide Allergy Mild swelling, Verified 01/20/21 01:02 Antibiotics) SOB terbutaline Allergy Mild Other Verified 01/20/21 01:02 adhesive Allergy Unknown Other Verified 01/20/21 01:02 peanut Allergy Anaphylaxis Verified 01/20/21 01:02 pine nut Allergy Anaphylaxis Verified 01/20/21 01:02 tree nut Allergy Anaphylaxis Verified 01/20/21 01:02 naproxen AdvReac Swelling Verified 01/20/21 01:02 Review of Systems Review of Systems: All systems reviewed & are unremarkable except as noted in HPI and below Constitutional: Constitutional: Reports no additional constitutional complaints Eyes: Eyes: Reports no additional eye complaints ENT: Reports system reviewed and no additional complaints, except as documented Cardiovascular: Cardiovascular: Reports as per HPI Respiratory: Respiratory: Reports no additional respiratory complaints Gastrointestinal: Gastrointestinal: Reports no additional gastrointestinal complaints Musculoskeletal: Musculoskeletal: Reports abnormal gait PMFSH Past Medical History Medical History Interstitial cystitis Migraines Surgical History Surgical History History of tubal ligation Family History Family History Son Immunocompromised Sibling Immunocompromised Grandparent Cancer Hypertension Diabetes mellitus Congestive heart failure Cerebrovascular accident History of blood clots Acute myocardial infarction Father Cancer Hypertension Social History Social History Smoking status: Never smoker Alcohol intake: never Substance use: never Substance use type: does not use Spiritual care concerns: No Exam Narrative: GENERAL: Well-appearing, obese , very slow to respond HEAD: Normocephalic, atraumatic. EYES: PERRLA and EOMI. ENT: Nares clear, no rhinorrhea or epistaxis. Mucous membranes moist. NECK: Supple. CHEST: Clear to auscultation. No respiratory distress. HEART: Regular rate and rhythm. No murmur heard. Normal peripheral pulses. EXTREMITIES: Normal range of motion. No edema. SKIN: Warm, dry, no rash. NEURO: No focal deficits. Alert and oriented x3. PSYCH: Normal mood and affect. Course Course Emergency Course: Patient still continues to have headache. I did give him morphine and Zofran. Informed patient and her about her lab work patient is unable to walk here in the ER , with two people help , Discussed with Dr. Soto agreed to admit.
[2021-03-03 23:59] VITALS: PULSE 77; RESP 16; O2SAT 98
[2021-03-04] VITALS (8 sets, daily range): BP systolic 102–131; BP diastolic 60–88; PULSE 68–93; RESP 16–18; TEMP 36.3–36.6; O2SAT 96–99; BMI 37.7
--- NOTE | 2021-03-04 04:00 | PC.NURSE ---
sleeping resp even unlabored waiting bed placement
[2021-03-04] MEDS: lisinopriL 10 MG TABLET PO (09:16)
--- NOTE | 2021-03-04 09:20 | PC.NURSE ---
Called MRI about doing pt scan. They state they are waiting to hear from Dr to clarify orders.
[2021-03-04] MEDS: ACETAMINOPHEN 325 MG TABLET 650 MG PO (11:38)
--- NOTE | 2021-03-04 11:51 | PC.NURSE ---
MRI called and stated they will be down to take pt to MRI soon
--- NOTE | 2021-03-04 16:11 | PM.IMPN ---
Progress Note: A&P Assessment and Plan (1) Syncope and collapse: Code(s): R55 - Syncope and collapse Status: Acute Assessment and Plan: Episode of syncope on 03/03/2021 while walking to the bathroom Head CT with no acute findings Will proceed with carotid Doppler Check orthostatic vital signs Fall precautions in place Appreciate PT/OT eval Monitor on telemetry overnight; so far remains in NSR Appreciate neurology consultation (2) Right leg weakness: Code(s): R29.898 - Other symptoms and signs involving the musculoskeletal system Status: Acute Assessment and Plan: Onset after syncopal episode. Right lower extremity strength is 4/5. Sensation is intact. Brain MRI showed normal brain without hemorrhage, infarct, or mass lesion Lumbar MRI showed mild lumbar spondylosis. Would not expect that this would contribute to her symptoms. Nerve conduction study has been ordered Appreciate neurology consultation, await further recommendations PT/OT as above Lumbar puncture was recommended to the patient on admission, however she refused (3) Hypertension: Code(s): I10 - Essential (primary) hypertension Status: Acute Assessment and Plan: Blood pressure reviewed and has been well controlled Continue lisinopril Monitor blood pressure trends Subjective Date/time seen: 03/04/21 16:11 Interval history: Date of service: 03/04/2021 Brandy Yip is a 35-year-old female with a history of TIA, hypertension, and fibromyalgia who is seen in follow-up after syncopal episode. She tells me that yesterday around 4:00 p.m. she got up to go to the bathroom. She stated her daughter noted she was wobbly and the next thing she knew she had passed out and woke up to her rubbing on her chest to arouse her. They got her into bed and she was feeling very tired and having trouble staying awake. She then developed a left-sided temporal headache and a pinching sensation in her bilateral legs that she described as like a bee sting, worse in the right leg than the left. Stated that her legs were jumping around? She also noted that her right arm was ?slow to move.? She describes this like she was trying to move her arm and it was taking longer to cooperate. She also felt like she could not open her right eye all the way and was ?not smiling with my whole face.? She did not have any bowel or bladder incontinence. Denies saddle anesthesia. Denies back pain. Denies visual changes including blurred vision, double vision, flashes, floaters. No speech changes. She had been feeling confused and felt that she was taking longer to respond. She stated she knew which need to say but could not quite get it out. For example, someone asked her address and she said she knew it but just could not speak out loud. Now she is starting to feel a little better but complains of feeling tired. She states that she cannot lift her right leg and she also has some left lower quadrant discomfort. She denies urinary symptoms, nausea, vomiting, fever, chills, shortness breath cough, chest pain, palpitations. She told me that 10 years ago she had a TIA and wonders if these could be related. I asked her what testing was done to confirm that she had a TIA and she stated that she has been worked up extensively by a neurologist, forestry workers, and a metallurgical analyst. She has been tested for MS in the past, as well as a panel of rheumatologic diseases. She has had a Holter monitor and echo and has no cardiac diagnoses. Review of Systems Review of Systems: All systems reviewed & are unremarkable except as noted in HPI and below Exam Narrative: Ms. Yip is a well-nourished, well-appearing 35-year-old female who is lying supine in bed. She appears comfortable and is in NARD. Neuro: awake, alert and oriented x4. Speech clear. CN II-XII intact, right lower extremity strength slightly diminished, she is able to li
--- NOTE | 2021-03-04 16:59 | ADMGEN ---
This patient, Brandy Yip, was admitted to Medical Room 343-01. Patient/family oriented to hospital policies and general routines including ID bracelet, bed and alarms, visiting hours, pain management, procedures, bathroom and other care routines, personal items, smoking policy, room service/diet, and visiting hours. Information on how to activate the Rapid Response Team has been discussed. Patient/Family are encouraged to report perceived risks to care and to ask questions if they do not understand what they are told or what they should do.
[2021-03-05] VITALS (14 sets, daily range): BP systolic 109–140; BP diastolic 60–99; PULSE 59–91; RESP 16–18; TEMP 35.9–36.9; O2SAT 98–100
[2021-03-05] MEDS: lisinopriL 10 MG TABLET PO (09:07)
--- NOTE | 2021-03-05 11:21 | WPDNEURCNPN ---
Assessment and Plan Additional Plan 1. Orthostatic hypotension by history 2. Fibromyalgia 3. Rule out the possibility of TIA which is extremely unlikely because of her present and past history she needs to be treated symptomatic if the metastatic symptomatology more frequent then we can start the perinephric 0.1 mg daily Consult date: 03/05/21 HPI: Brandy Yip is a 35 year old female 35 years old right-handed female admitted to the hospital for the complaints of change in the mental status in addition to the history of syncopal episode additionally patient carries the diagnosis of 1. Hypertension 2. Orthostatic hypotension reportedly last week she was using her walker he started feeling better this evening and she was at home and she passed out she has been dealing with this orthostatic hypertension for quite some time though she gives no history of any other associated neurological symptomatology. she has significant allergies as outlined, in addition to the history of recurrent migraine and interstitial cystitis, she is not a drinker not a smoker, , her initial evaluation in the Emergency Room documented the blood pressure 137/79, hemoglobin of 14.0 normal electrolytes and negative CT scan of the head, and mild lumbar spondylosis on MRI of the lumbar spine and definitely with no evidence of central canal stenosis Review of Systems Review of Systems: All systems reviewed & are unremarkable except as noted in HPI and below PMFSH Past Medical History Medical History Interstitial cystitis Migraines Surgical History Surgical History History of tubal ligation Family History Family History Son Immunocompromised Sibling Immunocompromised Grandparent Cancer Hypertension Diabetes mellitus Congestive heart failure Cerebrovascular accident History of blood clots Acute myocardial infarction Father Cancer Hypertension Social History Social History Smoking status: Never smoker Alcohol intake: former Drinks per week: 3 Substance use: never Substance use type: does not use Spiritual care concerns: No Meds Home Medications and Allergies Home Medications Medication Instructions Recorded Confirmed Type lisinopril 10 mg PO DAILY #30 tablet 01/22/21 03/04/21 Rx Allergies Allergy/AdvReac Type Severity Reaction Status Date / Time Quinolones Allergy Severe swelling Verified 03/04/21 07:28 of tongue and lips ciprofloxacin Allergy Mild Other Verified 03/04/21 07:28 Sulfa (Sulfonamide Allergy Mild swelling, Verified 03/04/21 07:28 Antibiotics) SOB terbutaline Allergy Mild Other Verified 03/04/21 07:28 adhesive Allergy Unknown Other Verified 03/04/21 07:28 peanut Allergy Anaphylaxis Verified 03/04/21 07:28 pine nut Allergy Anaphylaxis Verified 03/04/21 07:28 tree nut Allergy Anaphylaxis Verified 03/04/21 07:28 naproxen AdvReac Swelling Verified 03/04/21 07:28 Vital Signs Vital Signs - 24 hr 03/04/21 11:39 03/04/21 15:25 03/04/21 16:00 Temperature 36.3 C L Pulse Rate 93 73 82 Respiratory Rate 18 18 Blood Pressure 107/64 102/60 Pulse Oximetry 96 97 03/04/21 20:00 03/04/21 22:00 03/05/21 00:00 Temperature 36.6 C Pulse Rate 82 80 81 Respiratory Rate 18 16 Blood Pressure 122/78 Pulse Oximetry 97 99 03/05/21 04:00 03/05/21 09:30 Temperature 36.7 C Pulse Rate 59 L 74 Respiratory Rate 16 Blood Pressure 115/67 Pulse Oximetry 100 Exam Const: General: cooperative, alert, awake, in distress and anxious Nutritional Appearance: overweight Orientation/consciousness: oriented to person, oriented to place and oriented to time Limitations: other limitations HENMT: Head: normal to inspection Ears: hearing grossly normal bilaterally General nose exam: No
--- NOTE | 2021-03-05 15:32 | P.PNIM_ITS ---
Progress Note: A&P Assessment and Plan (1) Syncope and collapse: Code(s): R55 - Syncope and collapse Status: Acute Assessment and Plan: Episode of syncope on 03/03/2021 while walking to the bathroom * Head CT with no acute findings * Carotid Doppler showed normal internal carotid arteries * Echo reviewed from 01/22/2021 with normal systolic and diastolic function, no significant valvular disease * She is not orthostatic. * Monitored on telemetry. Remained in sinus rhythm. Will DC telemetry at this time * Fall precautions in place * Appreciate PT/OT eval (2) Right leg weakness: Code(s): R29.898 - Other symptoms and signs involving the musculoskeletal system Status: Acute Assessment and Plan: Onset after syncopal episode. Right lower extremity strength is 4/5. Sensation is intact. * Brain MRI showed normal brain without hemorrhage, infarct, or mass lesion * Lumbar MRI showed mild lumbar spondylosis. Would not expect that this would contribute to her symptoms. * Discussed case with Neurology and with my supervising physician. * Will proceed with MRI of the cervical spine to rule out any demyelinating disease * Differential includes Pb's paralysis secondary to seizure, especially given patient's seizure history. She did have an EEG on 01/20/2021 that was normal. Recommend repeat EEG as an outpatient (not able to be performed inpatient per police crime scene technician until Monday) * She should obtain outpatient nerve conduction study * PT/OT as above * Lumbar puncture recommended, however she refused (3) Hypertension: Code(s): I10 - Essential (primary) hypertension Status: Acute Assessment and Plan: Blood pressure reviewed and has been well controlled * Continue lisinopril * Monitor blood pressure trends (4) Neurological symptoms: Code(s): R29.90 - Unspecified symptoms and signs involving the nervous system Status: Acute Assessment and Plan: Patient with myriad of vague neurologic symptoms. Please see subjective and previous documentation for further details * She has been worked up for pheochromocytoma at last hospitalization. Normal plasma metanephrines * Additional differential includes psychosomatic, SLE (will check DENISA), seizure disorder (EEG as above), myasthenia gravis (check AChR antibody), sarcoidosis (check LUANA), carcinoid tumor (does not wish to remain hospitalized for 24-hour urine collection therefore may need to consider scheduling this outpatient) * She would like to establish care with a tire room supervisor in [place] and undergo further workup. * She will need neurology follow up as an outpatient * Also discussed importance of establishing with primary care provider Additional Plan Plan for discharge following completion of cervical MRI Subjective Date/time seen: 03/05/21 15:32 Interval history: Date of service: 03/05/2021 Brandy Yip is a 35-year-old female with a history of TIA, hypertension, and fibromyalgia who is seen in follow-up after syncopal episode. Today she complains of lightheadedness and weakness. She feels very unsteady on her feet. She is requiring a walker to get around. Still stating the right leg is very weak. She says that she feels dizzy on a daily basis. She elaborates today, stating that her symptoms have been persistent for several months. She has had extensive workup over the past month and in the past 2 years has been worked up extensively by Rheumatology and Cardiology. She has not found any diagnosis to explain her symptoms. She is frustrated by this. She notes that some
--- NOTE | 2021-03-05 15:32 | PM.IMPN ---
Progress Note: A&P Assessment and Plan (1) Syncope and collapse: Code(s): R55 - Syncope and collapse Status: Acute Assessment and Plan: Episode of syncope on 03/03/2021 while walking to the bathroom Head CT with no acute findings Carotid Doppler showed normal internal carotid arteries Echo reviewed from 01/22/2021 with normal systolic and diastolic function, no significant valvular disease She is not orthostatic. Monitored on telemetry. Remained in sinus rhythm. Will DC telemetry at this time Fall precautions in place Appreciate PT/OT eval (2) Right leg weakness: Code(s): R29.898 - Other symptoms and signs involving the musculoskeletal system Status: Acute Assessment and Plan: Onset after syncopal episode. Right lower extremity strength is 4/5. Sensation is intact. Brain MRI showed normal brain without hemorrhage, infarct, or mass lesion Lumbar MRI showed mild lumbar spondylosis. Would not expect that this would contribute to her symptoms. Discussed case with Neurology and with my supervising physician. Will proceed with MRI of the cervical spine to rule out any demyelinating disease Differential includes Pb's paralysis secondary to seizure, especially given patient's seizure history. She did have an EEG on 01/20/2021 that was normal. Recommend repeat EEG as an outpatient (not able to be performed inpatient per gallery or museum technician until Monday) She should obtain outpatient nerve conduction study PT/OT as above Lumbar puncture recommended, however she refused (3) Hypertension: Code(s): I10 - Essential (primary) hypertension Status: Acute Assessment and Plan: Blood pressure reviewed and has been well controlled Continue lisinopril Monitor blood pressure trends (4) Neurological symptoms: Code(s): R29.90 - Unspecified symptoms and signs involving the nervous system Status: Acute Assessment and Plan: Patient with myriad of vague neurologic symptoms. Please see subjective and previous documentation for further details She has been worked up for pheochromocytoma at last hospitalization. Normal plasma metanephrines Additional differential includes psychosomatic, SLE (will check DENISA), seizure disorder (EEG as above), myasthenia gravis (check AChR antibody), sarcoidosis (check LUANA), carcinoid tumor (does not wish to remain hospitalized for 24-hour urine collection therefore may need to consider scheduling this outpatient) She would like to establish care with a passenger relations representative in [place] and undergo further workup. She will need neurology follow up as an outpatient Also discussed importance of establishing with primary care provider Additional Plan Plan for discharge following completion of cervical MRI Subjective Date/time seen: 03/05/21 15:32 Interval history: Date of service: 03/05/2021 Brandy Yip is a 35-year-old female with a history of TIA, hypertension, and fibromyalgia who is seen in follow-up after syncopal episode. Today she complains of lightheadedness and weakness. She feels very unsteady on her feet. She is requiring a walker to get around. Still stating the right leg is very weak. She says that she feels dizzy on a daily basis. She elaborates today, stating that her symptoms have been persistent for several months. She has had extensive workup over the past month and in the past 2 years has been worked up extensively by Rheumatology and Cardiology. She has not found any diagnosis to explain her symptoms. She is frustrated by this. She notes that sometimes she will be sitting on the couch resting comfortably when all of a sudden her heart rate will jump up to around 170s. She typically feels dizzy with this to. She gets occasional headaches. She denies flushing. She wonders if her symptoms could be related to her menstrual cycle, stating that when she had a similar episode in both December and January, she was m
[2021-03-05 18:37] LABS: Add Urine Microscopic? YES; Appearance Urine Clear (Clear); Bilirubin Urine Negative (Negative); Blood Urine Negative (Negative); Color Urine Straw (Yellow); Glucose Urine UA Negative (Negative); Ketones Urine Negative (Negative); Leukocyte Esterase Ur 2+ LEU/UL (Negative); Mucus Urine Rare /lpf; Nitrate Urine Negative (Negative); Protein Urine Negative (Negative); RBC Urine 0-2 /hpf (0-2); Specific Grav Ur 1.006 (1.001-1.035); Squamous Epithelial Cell Urine Rare /hpf (Few); Urobilinogen Urine Negative mg/dL (<2.0)
[2021-03-06 05:56] VITALS: BP 117/62; PULSE 70; RESP 14; TEMP 36.1; O2SAT 98
[2021-03-06 10:00] VITALS: BP 119/76; PULSE 74; RESP 14; TEMP 36.1; O2SAT 97
[2021-03-06 10:02] VITALS: BP 133/78; PULSE 75
[2021-03-06] MEDS: lisinopriL 10 MG TABLET PO (10:02)
[2021-03-06 10:04] VITALS: BP 128/60; PULSE 98
--- NOTE | 2021-03-06 11:10 | P.DS_ITS ---
DS: Admitting Diagnosis Discharge Date 03/06/2021 Admitting Diagnosis Syncopal episode DS: Discharge Diagnosis Discharge Diagnosis (1) Syncope and collapse: Code(s): R55 - Syncope and collapse Status: Acute Assessment and Plan: Episode of syncope on 03/03/2021 while walking to the bathroom * Head CT with no acute findings * Carotid Doppler showed normal internal carotid arteries * Echo reviewed from 01/22/2021 with normal systolic and diastolic function, no significant valvular disease. No need to repeat. * She was not orthostatic. * Monitored on telemetry for 24 hours and remained in normal sinus rhythm. * Fall precautions implemented and discussed with patient * She participated in PT/OT. She was ambulating safely. She will benefit from continued outpatient PT and should arrange with PCP. Patient informed of this. (2) Right leg weakness: Code(s): R29.898 - Other symptoms and signs involving the musculoskeletal system Status: Acute Assessment and Plan: Onset after syncopal episode. Right lower extremity strength is 4/5. Sensation is intact. * Brain MRI showed normal brain without hemorrhage, infarct, or mass lesion * Lumbar MRI showed mild lumbar spondylosis. Would not expect that this would contribute to her symptoms. * Cervical MRI showed [id number] cervical arthropathy, again would not expect this to contribute to her symptoms. No evidence of demyelinating disease. * Discussed case with Neurology and with my supervising physician. * Differential includes Pb's paralysis secondary to seizure, especially given patient's seizure history. She did have an EEG on 01/20/2021 that was normal. Recommend repeat EEG as an outpatient (not able to be performed inpatient per facilities maintenance technician until Monday, patient did not wish to remain hospitalized to await EEG) * She should obtain outpatient nerve conduction study. She was given instructions for follow-up regarding this * PT/OT as above * Lumbar puncture recommended, however she refused (3) Hypertension: Code(s): I10 - Essential (primary) hypertension Status: Acute Assessment and Plan: Blood pressure reviewed and was well controlled * Continue lisinopril (4) Neurological symptoms: Code(s): R29.90 - Unspecified symptoms and signs involving the nervous system Status: Acute Assessment and Plan: Patient with myriad of vague neurologic symptoms. Please see progress notes for further details * She has been worked up for pheochromocytoma at last hospitalization. Normal plasma metanephrines * Additional differential includes psychosomatic, SLE (DENISA pending), seizure disorder (EEG as above), myasthenia gravis ( AChR antibody pending), sarcoido sis (LUANA pending), carcinoid tumor (does not wish to remain hospitalized for 24-hour urine collection therefore may need to consider scheduling this outpatient). She can follow-up with Neurology to review these results and she needs to establish with PCP. * She would like to establish care with a tinsmith apprentice in [place] and undergo further workup. * She will need neurology follow up as an outpatient. DS: Summary Hospital Course Hospital Course: Date of admission: 03/03/2021 Date of discharge: 03/06/2021 Brandy Yip is a 35-year-old female with a history of TIA, seizure no longer on medications, hypertension, and fibromyalgia who presented to the emergency department on 03/03/2019 to after a syncopal episode following which she was poorly responsive and reported facial droop and right leg weak
--- NOTE | 2021-03-06 11:10 | PM.DS ---
DS: Admitting Diagnosis Discharge Date 03/06/2021 Admitting Diagnosis Syncopal episode DS: Discharge Diagnosis Discharge Diagnosis (1) Syncope and collapse: Code(s): R55 - Syncope and collapse Status: Acute Assessment and Plan: Episode of syncope on 03/03/2021 while walking to the bathroom Head CT with no acute findings Carotid Doppler showed normal internal carotid arteries Echo reviewed from 01/22/2021 with normal systolic and diastolic function, no significant valvular disease. No need to repeat. She was not orthostatic. Monitored on telemetry for 24 hours and remained in normal sinus rhythm. Fall precautions implemented and discussed with patient She participated in PT/OT. She was ambulating safely. She will benefit from continued outpatient PT and should arrange with PCP. Patient informed of this. (2) Right leg weakness: Code(s): R29.898 - Other symptoms and signs involving the musculoskeletal system Status: Acute Assessment and Plan: Onset after syncopal episode. Right lower extremity strength is 4/5. Sensation is intact. Brain MRI showed normal brain without hemorrhage, infarct, or mass lesion Lumbar MRI showed mild lumbar spondylosis. Would not expect that this would contribute to her symptoms. Cervical MRI showed [id number] cervical arthropathy, again would not expect this to contribute to her symptoms. No evidence of demyelinating disease. Discussed case with Neurology and with my supervising physician. Differential includes Pb's paralysis secondary to seizure, especially given patient's seizure history. She did have an EEG on 01/20/2021 that was normal. Recommend repeat EEG as an outpatient (not able to be performed inpatient per environmental laboratory technician until Monday, patient did not wish to remain hospitalized to await EEG) She should obtain outpatient nerve conduction study. She was given instructions for follow-up regarding this PT/OT as above Lumbar puncture recommended, however she refused (3) Hypertension: Code(s): I10 - Essential (primary) hypertension Status: Acute Assessment and Plan: Blood pressure reviewed and was well controlled Continue lisinopril (4) Neurological symptoms: Code(s): R29.90 - Unspecified symptoms and signs involving the nervous system Status: Acute Assessment and Plan: Patient with myriad of vague neurologic symptoms. Please see progress notes for further details She has been worked up for pheochromocytoma at last hospitalization. Normal plasma metanephrines Additional differential includes psychosomatic, SLE (DENISA pending), seizure disorder (EEG as above), myasthenia gravis ( AChR antibody pending), sarcoidosis (LUANA pending), carcinoid tumor (does not wish to remain hospitalized for 24-hour urine collection therefore may need to consider scheduling this outpatient). She can follow-up with Neurology to review these results and she needs to establish with PCP. She would like to establish care with a gaggerman in [place] and undergo further workup. She will need neurology follow up as an outpatient. DS: Summary Hospital Course Hospital Course: Date of admission: 03/03/2021 Date of discharge: 03/06/2021 Brandy Yip is a 35-year-old female with a history of TIA, seizure no longer on medications, hypertension, and fibromyalgia who presented to the emergency department on 03/03/2019 to after a syncopal episode following which she was poorly responsive and reported facial droop and right leg weakness. On presentation to the emergency department, her vital signs were stable, she was afebrile, CBC and BMP unremarkable, head CT showed no acute intracranial findings, and CXR showed no acute findings. She was admitted to the hospitalist service for further evaluation and management and was seen in consultation by Neurology. Please see above for further details. MRI of the brain, cervi
[2021-03-11 06:01] LABS: Angiotensin Converting Enzyme 6 U/L (9-67)
[2021-03-12 00:37] LABS: Acetylchol Receptor Binding Ab <0.30 nmol/L
== END 2021-03-06 15:04 | disposition home or self-care (01) ==
LOC: ANHED 20:49 → ANH3MEDSUR 23:44 → ANH3MED 03-04 13:06
PROVIDERS: Physician Assistant; Admitting Provider Internal Medicine; Emergency Provider Family Medicine; Visit Provider Internal Medicine
DX: R55 Syncope and collapse (principal); R29.898 Other symptoms and signs involving the musculoskeletal system; I10 Essential (primary) hypertension; N30.10 Interstitial cystitis (chronic) without hematuria; R29.90 Unspecified symptoms and signs involving the nervous system; E66.01 Morbid (severe) obesity due to excess calories; M47.816 Spondylosis without myelopathy or radiculopathy, lumbar region; M47.812 Spondylosis without myelopathy or radiculopathy, cervical region; M79.7 Fibromyalgia; Z86.73 Personal history of transient ischemic attack (TIA), and cerebral infarction without residual deficits; Z68.37 Body mass index [BMI] 37.0-37.9, adult
CPT/HCPCS: 36415; 70450; 70551; 71045; 72141; 72148; 80053; 81001; 82164; 82948; 84238; 84484; 85025; 85610; 85730; 86038; 93005; 93880; 96374; 96375; 97110; 97116; 97161; 99285; A9270; G0378; G0379; J2270; J2405

== ENCOUNTER 2021-07-30 17:51 | Observation (INO) | payer BC, SELFPAY ==
--- NOTE | ~2021-07-30 | XR_ITS ---
EXAMINATION: XR chest 2V DATE: 07/30/2021 18:48 INDICATION: Presyncope TECHNIQUE: PA and lateral views of the chest are obtained. COMPARISON: 03/03/2021 FINDINGS: The lungs are free of acute opacities. There is no pleural effusion or pneumothorax. The ca rdiomediastinal silhouette is normal. There is mild thoracic spondylosis. IMPRESSION: 1. No acute cardiopulmonary abnormality. Reviewed, dictated and finalized at location F.
--- NOTE | ~2021-07-30 | CT_ITS ---
EXAMINATION: CT cervical spine wo con DATE: 07/30/2021 20:37 INDICATION: Head injury TECHNIQUE: Computed tomography (CT) of the cervical spine was performed without intravenous contrast. The dose-length product (DLP) was 539.34 mGy-cm. Automated exposure control and iterative reconstruc tion technique were employed. COMPARISON: None FINDINGS: The odontoid is intact. There is no fracture, dislocation, or subluxation. The there is of moderate loss of intervertebral disc space height at C6-7 and C7-T1. The vertebral body heights are n ormal.. The paravertebral soft tissues are unremarkable. IMPRESSION: 1. Mild to moderate lower cervical spondylosis without acute findings or significant interval change. Reviewed, dictated and finalized at location F. IMPRESSION: 1. Mild to moderate lower cervical spondylosis without acute findings or signif icant interval change.
--- NOTE | ~2021-07-30 | CT_ITS ---
EXAMINATION: CTA chest PE protocol DATE: 07/30/2021 20:36 INDICATION: Shortness of breath TECHNIQUE: Computed tomography angiography (CTA) of the chest was performed with 100 mL Omnipaque-350 intravenous contrast timed to evaluate the pulmonary arteries. Coronal maximum intensity projection 3D-reconstructions were created by the technologist. The dose-length product (DLP) was 982.91 mGy-cm. Automated exposure control and iterative reconstruction technique were employed. COMPARISON: 01/19/2021 FINDINGS: The pulmonary arteries are well-opacified. No pulmonary embolism is identified. The lungs a re free of acute opacities. There is no pleural effusion or pneumothorax. There is a small sliding hi atal hernia. No pathologically enlarged thoracic lymph nodes are identified. The heart size is normal . A small sliding hiatal hernia is noted. IMPRESSION: 1. No pulmonary embolism or acute cardiopulmonary abnormality. Reviewed, dictated and finalized at location F.
--- NOTE | ~2021-07-30 | CT_ITS ---
EXAMINATION: CT brain wo con INDICATION: Transient alteration of awareness COMPARISON: 03/03/2021 TECHNIQUE: Standard unenhanced head CT. The dose-length product (DLP) was 529.67 mGy-cm. The mA was a djusted according to patient size. Iterative reconstruction technique was employed. FINDINGS: There is no intracranial hemorrhage, acute infarction, or abnormal mass lesion. The ventric les are normal. There is no abnormal mass effect or midline shift. The may-white matter differentiat ion is normal. The basal cisterns are patent. The orbits are normal. The paranasal sinuses, mastoids and calvarium are normal. IMPRESSION: 1. No acute intracranial abnormality. Reviewed, dictated and finalized at location F.
--- NOTE | ~2021-07-30 | CT_ITS ---
EXAMINATION: CT brain wo con INDICATION: Head injury COMPARISON: 2005 hours TECHNIQUE: Standard unenhanced head CT. The dose-length product (DLP) was 529.67 mGy-cm. The mA was a djusted according to patient size. Iterative reconstruction technique was employed. FINDINGS: There is no intracranial hemorrhage, acute infarction, or abnormal mass lesion. The ventric les are normal. There is no abnormal mass effect or midline shift. The may-white matter differentiat ion is normal. The basal cisterns are patent. The orbits are normal. The paranasal sinuses, mastoids and calvarium are normal. Contrast from interval CT is noted. IMPRESSION: 1. No acute intracranial abnormality. Reviewed, dictated and finalized at location F.
[2021-07-30 18:07] VITALS: BP 155/96; PULSE 83; RESP 18; TEMP 36.5; O2SAT 100
--- NOTE | 2021-07-30 18:14 | ECG_ITS ---
Measurements Intervals [place] Rate: 83 P: 36 NC: 133 QRS: 71 QRSD: 110 T: 18 QT: 377 QTc: 444 Interpretive Statements SINUS RHYTHM INCOMPLETE RIGHT BUNDLE BRANCH BLOCK [90+ ms QRS DURATION, TERMINAL R IN V1/V2, 40+ ms S IN I/aVL/V4/V5/V6] COMPARED TO ECG 03/03/2021 21:51:51 INCOMPLETE RIGHT BUNDLE-BRANCH BLOCK NOW PRESENT Electronically Signed On 07-31-2021 9:22:17 CDT by Celia Sharp M.D.
--- NOTE | 2021-07-30 18:25 | ED.SYNCOPE ---
HPI - Syncope General Chief Complaint: Syncope Stated Complaint: HEAT EXPOSURE NEAR SYNCOPE Time Seen by Provider: 07/30/21 18:24 Source: patient Mode of arrival: EMS Limitations: no limitations History of Present Illness HPI narrative: This is a 36-year-old female that presents to the emergency department for presyncopal episode today. 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 She does not think that she was keeping up with her hydration as well as she should have. Reports she went to the bathroom and was washing her hands. She started to feel very lightheaded and somebody had to help her to the floor. Reports similar episodes in the past. She had a hysterectomy a couple of months ago. Denies fever, chest pain, shortness of breath, palpitations, numbness, or weakness. Related Data Allergies Allergy/AdvReac Type Severity Reaction Status Date / Time Quinolones Allergy Severe swelling Verified 07/31/21 00:27 of tongue and lips ciprofloxacin Allergy Mild Other Verified 07/31/21 00:27 Sulfa (Sulfonamide Allergy Mild swelling, Verified 07/31/21 00:27 Antibiotics) SOB terbutaline Allergy Mild Other Verified 07/31/21 00:27 adhesive Allergy Unknown Other Verified 07/31/21 00:27 peanut Allergy Anaphylaxis Verified 07/31/21 00:27 pine nut Allergy Anaphylaxis Verified 07/31/21 00:27 tree nut Allergy Anaphylaxis Verified 07/31/21 00:27 naproxen AdvReac Swelling Verified 07/31/21 00:27 Review of Systems Review of Systems: CONSTITUTIONAL: Denies fever CARDIOVASCULAR: Denies chest pain, palpitations, or edema. RESPIRATORY: Denies dyspnea. NEUROLOGIC: Denies numbness, or weakness. All systems reviewed & are unremarkable except as noted in HPI and below PMFSH Past Medical History Medical History (Updated 07/30/21 @ 22:39 by Eileen Wolff PA-C) Hypertension Interstitial cystitis Migraines Surgical History Surgical History History of tubal ligation Family History Family History Son Immunocompromised Sibling Immunocompromised Grandparent Cancer Hypertension Diabetes mellitus Congestive heart failure Cerebrovascular accident History of blood clots Acute myocardial infarction Father Cancer Hypertension Social History Social History Smoking status: Never smoker Alcohol intake: never Drinks per week: 3 Substance use: never Substance use type: does not use Spiritual care concerns: No Exam Narrative: GENERAL: Well-appearing, well-nourished, and in no acute distress. HEAD: Normocephalic, atraumatic. EYES: PERRLA and EOMI. ENT: Nares clear, no rhinorrhea or epistaxis. Mucous membranes moist. Oropharynx without tonsillar hypertrophy exudate or other lesions. Bilateral TMs pearly may non-bulging NECK: Supple. No adenopathy or masses. CHEST: Clear to auscultation. No respiratory distress. No wheezes rales or rhonchi HEART: Regular rate and rhythm. No murmur heard. Normal peripheral pulses. EXTREMITIES: Normal range of motion. No edema. SKIN: Warm, dry, no rash. NEURO: No focal deficits. Alert and oriented x3. Cranial nerves II through XII grossly intact PSYCH: Normal mood and affect Course Consultations Consultation #1: Spoke with Dr. Soto about patient and work-up who accepts admission Date: 07/30/21 Vital Signs Vital signs: Vital Signs Temperature 97.7 F 07/30/21 18:07 Pulse Rate 83 07/30/21 18:07 Respiratory Rate 18 07/30/21 18:07 Blood Pressure 155/96 H 07/30/21 18:07 Pulse Oximetry 100 07/30/21 18:07 Oxygen Delivery Room Air 07/30/21 18:07 Temperature 97.6 F 07/31/21 00:08 Pulse Rate 65 07/31/21 04:00 Respiratory Rate 18 07/31/21 00:08 Blood Pressure 133/75 07/31/21 00:08 Pulse Oximetry 97 07/31/21 00:08 Oxygen Delivery Room Air 07/30/21 18:07
[2021-07-30 18:30] LABS: Basophils Absolute Auto 0.1 K/mm3 (0.0-0.1); Basophils Percent Auto 0.4 % (0.2-1.2); Eosinophils Absolute Auto 0.1 K/mm3 (0-0.3); Eosinophils Percent Auto 0.4 % (0-4.4); Hematocrit 39.1 % (37.0-47.0); Hemoglobin 13.4 g/dL (12.0-15.0); Immature Granulocyte Absolute 0.07 K/mm3 (0.00-0.031); Immature Granulocyte Percent A 0.6 % (0-0.5); Lymphocytes Absolute Auto 1.56 K/mm3 (0.9-3.2); Lymphocytes Percent Auto 13.7 % (18.3-44.2); Mean Corpuscular HGB Conc 34.3 g/dl (32-36); Mean Corpuscular Hemoglobin 29.1 pg (26-34); Mean Corpuscular Volume 84.8 fl (80-100); Mean Platelet Volume 9.8 fl (7.4-10.4); Monocytes Absolute Auto 0.7 K/mm3 (0.1-0.6); Monocytes Percent Auto 5.7 % (2.6-8.5); Neutrophils Percent Auto 79.2 % (45.5-73.1); Platelet Count Result 314 k/mm3 (150-375); Red Blood Count 4.61 M/mm3 (4.2-5.4); Red Cell Distribution Width 13.2 % (11.5-14.5); White Blood Count 11.4 K/mm3 (4.5-10.0)
[2021-07-30 18:31] LABS: Glucose Point of Care 125 mg/dl (65-105)
--- NOTE | 2021-07-30 18:36 | PC.NURSE ---
PT A/O X 4, REPORTS SOME NAUSEA, BS 125. [facility] ALONG WITH NS 1L STARTED
[2021-07-30 18:38] LABS: Alanine Aminotransferase 16 U/L (6-35); Albumin Level 4.6 g/dL (3.5-5.1); Alkaline Phosphatase 94 U/L (38-126); Anion Gap 9 mmol/L (8-16); Aspartate Amino Transferase 23 U/L (14-36); Bilirubin,Total 0.4 mg/dL (0.2-1.3); Blood Urea Nitrogen 11 mg/dL (7-17); Calcium 8.9 mg/dL (8.4-10.2); Carbon Dioxide 21 mmol/L (22-30); Chloride 108 mmol/L (98-107); Estimated CRCL calculation 102 ml/min; Estimated Glomerular Filt Rate > 60; Glucose 101 mg/dL (65-110); Potassium 3.5 mmol/L (3.4-5.0); Sodium 138 mmol/L (137-145)
[2021-07-30] MEDS: SODIUM CHLORIDE 0.9% IV 1,000 ML 999 ML IV CONT (18:51)
[2021-07-30] MEDS: ONDANSETRON INJ 4 MG/2 ML VIAL IV PUSH (18:51)
[2021-07-30 19:33] LABS: Partial Thromboplastin Time 30.1 SECONDS (22.3-36.8); Prothrombin Time 13.2 Seconds (11.1-14.7)
[2021-07-30 19:34] LABS: Creatine Kinase 88 U/L (30-135)
[2021-07-30 19:36] LABS: D Dimer 0.51 ug/mL (<0.48)
[2021-07-30 19:51] VITALS: BP 158/84; PULSE 98; RESP 20; O2SAT 100
[2021-07-30 20:18] VITALS: BP 158/93; PULSE 95; RESP 25; O2SAT 100
[2021-07-30 20:25] VITALS: BP 147/95; PULSE 88; RESP 24; O2SAT 100
--- NOTE | 2021-07-30 20:37 | PC.NURSE ---
Pt had been c/o posterior headache that started while in the ER. RN spoke with Eileen and new order for Tylenol given. Pt taken to CT scan, after getting tests CT staff called a rapid response. Staff assisted pt to sit up while on the CT table, pt was somewhat unresponsive, eyes rolled back in her head and pt became unconscious, not responding to staff when rapid response was called. pt did strike the back of her head on the head rest for CT table. Pt A/O x3 by the time RN made it to CT. Eileen called and new order to re-scan her head and pt move to room 19.
[2021-07-30 21:33] LABS: Appearance Urine Clear (Clear); Bilirubin Urine Negative (Negative); Blood Urine Negative (Negative); Color Urine Yellow (Yellow); Glucose Urine UA Negative (Negative); Ketones Urine 1+ mg/dL (Negative); Leukocyte Esterase Ur 1+ LEU/UL (Negative); Nitrate Urine Negative (Negative); Protein Urine Negative (Negative); Specific Grav Ur <= 1.005 (1.001-1.035); Urobilinogen Urine 0.2 mg/dL (<2.0); pH Urine 5.5 (5.0-9.0)
[2021-07-30 21:35] LABS: Mucus Urine Rare /lpf; RBC Urine 0-2 /hpf (0-2); Squamous Epithelial Cell Urine Rare /hpf (Few); WBC Urine 0-3 /hpf
[2021-07-30 21:59] LABS: Add Urine Microscopic? YES
[2021-07-30 22:15] LABS: Troponin I < 0.012 ng/mL (0.000-0.034)
[2021-07-30 22:27] LABS: SARS-CoV-2 RNA PCR Negative
[2021-07-30 23:46] VITALS: RESP 18; O2SAT 100
--- NOTE | 2021-07-30 23:50 | ADMGEN ---
This patient, Brandy Yip, was admitted to 3 [facility] Surg Room 311-01. Patient/family oriented to hospital policies and general routines including ID bracelet, bed and alarms, visiting hours, pain management, procedures, bathroom and other care routines, personal items, smoking policy, room service/diet, and visiting hours. Information on how to activate the Rapid Response Team has been discussed. Patient/Family are encouraged to report perceived risks to care and to ask questions if they do not understand what they are told or what they should do.
[2021-07-31] VITALS (10 sets, daily range): BP systolic 117–140; BP diastolic 61–75; PULSE 65–80; RESP 16–18; TEMP 36.2–37.3; O2SAT 97–99; BMI 40.4
--- NOTE | 2021-07-31 04:15 | PM.IMHP ---
H&P: HPI History of Present Illness Date/Time: 07/31/21 04:15 Chief Complaint: Syncope Narrative: This is a 36-year-old female with past medical history significant for hypertension. Patient presents to the emergency room via EMS after she had a syncopal episode according to patient she had been standing out participating in an outdoor activity when she went to use the bathroom and while standing in front of the mirror or passed out and her friend was able to catch her on her way down. Patient said denies any chest pain, palpitations, nausea, vomiting, no dizziness, no vertigo, patient states that she had not had anything to eat or any drinks all day, she has been her usual state of health prior to these, no fevers, no rigors, no chills, no cough, no sputum production, no near syncope or syncope episodes, no shortness of breath, and no calves pain. Preliminary workup has been essentially nonrevealing. Review of Systems Review of Systems: Syncopal episode Constitutional: Constitutional: Denies chills, Denies fatigue, Denies fever(s) and Denies night sweats Eyes: Eyes: Denies change in vision ENT: Denies dysphagia, Denies vertigo, Denies odynophagia and Denies disequilibrium Cardiovascular: Cardiovascular: Denies chest pain, Denies pedal edema, Denies irregular heart rhythm, Denies claudication, Reports lightheadedness, Denies radiating jaw, neck or arm pain, Denies palpitations and Denies dyspnea on exertion Respiratory: Respiratory: Denies change in phlegm color, Denies cough and Denies excessive phlegm production Gastrointestinal: Gastrointestinal: Denies abdominal pain, Denies dyspepsia, Denies heartburn, Denies diarrhea, Denies nausea and Denies vomiting Genitourinary: Genitourinary: Denies dysuria Musculoskeletal: Musculoskeletal: Denies back pain Integumentary/Breasts: Skin/Breast: Denies rash Neurologic: Denies vertigo, Denies dizziness, Denies focal weakness and Denies Sensory deficit (Neuro) Psychiatric: Psychiatric: Reports no additional psychiatric complaints and Reports as per HPI Endocrine: Endocrine: Denies cold intolerance, Denies fatigue, Denies flushing, Denies heat intolerance, Denies polyphagia, Denies polydipsia and Denies palpitations Hematologic/Lymphatic: Hematologic/Lymphatic: Reports no additional hematologic/lymphatic complaints and Reports as per HPI Allergic/Immunologic: Allergic/Immunologic: Reports no additional allergic/immunologic complaints and Reports as per HPI PMFSH Past Medical History Medical History (Updated 07/30/21 @ 22:39 by Eileen Wolff PA-C) Hypertension Interstitial cystitis Migraines Surgical History Surgical History History of tubal ligation Family History Family History Son Immunocompromised Sibling Immunocompromised Grandparent Cancer Hypertension Diabetes mellitus Congestive heart failure Cerebrovascular accident History of blood clots Acute myocardial infarction Father Cancer Hypertension Social History Social History Smoking status: Never smoker Alcohol intake: never Drinks per week: 3 Substance use: never Substance use type: does not use Spiritual care concerns: No Meds Home Medications and Allergies Home Medications Medication Instructions Recorded Confirmed Type lisinopril 10 mg tablet 10 mg PO DAILY #30 tabs 01/22/21 07/30/21 Rx Allergies Allergy/AdvReac Type Severity Reaction Status Date / Time Quinolones Allergy Severe swelling Verified 07/31/21 00:27 of tongue and lips ciprofloxacin Allergy Mild Other Verified 07/31/21 00:27 Sulfa (Sulfonamide Allergy Mild swelling, Verified 07/31/21 00:27 Antibiotics) SOB terbutaline Allergy Mild Other Verified 07/31/21 00:27 adhesive Allergy Unknown Other Verified 07/31/21 00:27 peanut Allergy Darshana
[2021-07-31] MEDS: ACETAMINOPHEN 500 MG TABLET 1000 MG PO ×3 (08:45→20:56)
[2021-07-31] MEDS: lisinopriL 10 MG TABLET PO (08:46)
--- NOTE | 2021-07-31 16:28 | PM.IMPN ---
Progress Note: A&P Assessment and Plan (1) Syncope and collapse: Code(s): R55 - Syncope and collapse Status: Acute Assessment and Plan: Place in observation CT head with no acute intracranial abnormality CT angiogram of the chest no acute pulmonary embolism Continue to monitor (2) Morbid obesity with BMI of 40.0-44.9, adult: Code(s): E66.01 - Morbid (severe) obesity due to excess calories; Z68.41 - Body mass index [BMI] 40.0-44.9, adult Status: Acute Assessment and Plan: Lifestyle and diet modifications Plan # syncope orthostatic is negative chronology of events suggestive of orthostatic hypotension versus vasovagal. Multiple prior episodes reported. EKG with normal sinus rhythm. On telemetry monitoring. Echo done 01/17 with no significant valvular abnormality. She reports intermittent tachycardia associated with these episodes. He has had altered monitor done in the past which has been unrevealing. Might benefit from sending her home with event monitor. Consult Cardiology for their input. IV hydration done yesterday looks euvolemic today Check TSH # head injury CT head/cervical spine negative # elevated D-dimer CTA is negative for PE # hypertension continue lisinopril # mild leukocytosis recheck and monitor # DVT prophylaxis SCDs ambulatory # code status full code Subjective Date/time seen: 07/31/21 16:28 Interval history: HPI:This is a 36-year-old female with past medical history significant for hypertension.? Patient presents to the emergency room via EMS after she had a syncopal episode according to patient she had been standing out participating in an outdoor activity when she went to use the bathroom and while standing in front of the mirror or passed out and her friend was able to catch her on her way down.? Patient said denies any chest pain, palpitations, nausea, vomiting, no dizziness, no vertigo, patient states that she had not had anything to eat or any drinks all day, she has been her usual state of health prior to these, no fevers, no rigors, no chills, no cough, no sputum production, no near syncope or syncope episodes, no shortness of breath, and no calves pain.? Preliminary workup has been essentially nonrevealing. 07/31/2021 history reviewed. Multiple episodes of syncope in the past. All presumed to be vasovagal. Sees Dr. Marcus as an outpatient basis for hypertension. On lisinopril. Echo has been done in the past which was been unremarkable. Altered monitors has been unremarkable in the past. Reports intermittent episodes of tachycardia with no detected arrhythmia so far. Symptomatology consistent with vasovagal /orthostatic. Orthostatic however was negative and is reported to be always negative in the past. Prefers discussing with Cardiology potentially event monitor placement Review of Systems Review of Systems: All systems reviewed & are unremarkable except as noted in HPI and below ( HPI) Exam Narrative: GENERAL: The patient is well developed, not in acute distress HEENT: Nonicteric sclerae, PERRLA, EOMI. Oropharynx clear. Moist mucous membranes. Conjunctivae appear well perfused. CHEST: Chest wall is nontender. HEART: Regular rate and rhythm without murmur, rubs, or gallops LUNGS: Clear to auscultation bilaterally. no respiratory distress ABDOMEN: Soft, positive bowel sounds, non-tender, no organomegaly. SKIN: No rash, no excessive bruising, petechiae, or purpura. NEUROLOGIC: Cranial nerves II-XII intact, alert and oriented x 3, no gross motor deficits EXTREMITIES: no edema, cyanosis or clubbing Extrem: General: normal exam except as noted and no edema Objective Data Vital Signs Vital Signs: Vital Signs - 24 hr 07/30/21 18:07 07/30/21 19:51 07/30/21 20:18 Temperature 97.7 F Pulse Rate 83 98 95 Respiratory Rate 18 20 25 H Blood Pressure 155/96 H 158/84 H 158/93 H Pulse Oximetry 100 100 100 Oxygen Delivery Room Air 07/30/21 20:25 0
[2021-08-01] VITALS (8 sets, daily range): BP systolic 125–132; BP diastolic 63–75; PULSE 60–85; RESP 14–16; TEMP 36.6–36.9; O2SAT 98–100
[2021-08-01 07:10] LABS: Basophils Percent Auto 0.7 % (0.2-1.2); Eosinophils Absolute Auto 0.1 K/mm3 (0-0.3); Eosinophils Percent Auto 2.1 % (0-4.4); Hematocrit 40.3 % (37.0-47.0); Hemoglobin 13.2 g/dL (12.0-15.0); Immature Granulocyte Absolute 0.03 K/mm3 (0.00-0.031); Immature Granulocyte Percent A 0.5 % (0-0.5); Lymphocytes Absolute Auto 1.81 K/mm3 (0.9-3.2); Lymphocytes Percent Auto 29.6 % (18.3-44.2); Mean Corpuscular HGB Conc 32.8 g/dl (32-36); Mean Corpuscular Hemoglobin 28.8 pg (26-34); Mean Corpuscular Volume 87.8 fl (80-100); Monocytes Absolute Auto 0.4 K/mm3 (0.1-0.6); Neutrophils Absolute Auto 3.7 K/mm3 (1.3-6.7); Neutrophils Percent Auto 60.1 % (45.5-73.1); Platelet Count Result 280 k/mm3 (150-375); Red Blood Count 4.59 M/mm3 (4.2-5.4); Red Cell Distribution Width 13.5 % (11.5-14.5); White Blood Count 6.1 K/mm3 (4.5-10.0)
[2021-08-01 07:23] LABS: Anion Gap 6 mmol/L (8-16); Blood Urea Nitrogen 8 mg/dL (7-17); Calcium 8.7 mg/dL (8.4-10.2); Carbon Dioxide 23 mmol/L (22-30); Chloride 108 mmol/L (98-107); Estimated CRCL calculation 117 ml/min; Estimated Glomerular Filt Rate > 60; Glucose 92 mg/dL (65-110); Magnesium 2.2 mg/dL (1.6-2.3); Potassium 4.2 mmol/L (3.4-5.0); Sodium 137 mmol/L (137-145)
[2021-08-01] MEDS: ACETAMINOPHEN 500 MG TABLET 1000 MG PO (08:58)
[2021-08-01] MEDS: lisinopriL 10 MG TABLET PO (08:59)
--- NOTE | 2021-08-01 09:02 | PM.CNCAR ---
Assessment and Plan Assessment and plan (1) Vasovagal syncope: Code(s): R55 - Syncope and collapse Status: Acute Assessment and Plan: Long history of syncope which appears to be vasovagal syncope. This is the 1st episode she has had since her hysterectomy in April. Seems to been aggravated by being outside all day with little to eat. Prior evaluations unremarkable for any significant cardiac pathology and no arrhythmias have been noted here. Was not orthostatic on admission. (2) History of hypertension: Code(s): Z86.79 - Personal history of other diseases of the circulatory system Status: Acute Assessment and Plan: Blood pressure controlled Plan Okay for discharge Discussed aggressive hydration and avoidance of provoking factors such as being in the heat, hot showers etc. Although typically we ask hypertensive patients to avoid salt, the addition of some sodium in her diet may help increase her intravascular volume. Pay attention to the prodrome and sit down/lie down when that occurs Reviewed large muscle constraction exercise to improve venous inflow to the heart when she has these symptoms Has a follow-up visit with Dr. Marcus scheduled for August History of Present Illness History of Present Illness Consult date/time: 08/01/21 09:02 Reason For Visit: syncope Narrative: Brandy Yip is a 36-year-old female whom I was asked to see at the request of Dr. Venegas for my advice and opinion regarding her syncopal episode, in consultation. She has a history of hypertension, TIA, seizure, and fibromyalgia, and previous syncope. She is followed by DR. Marcus. The patient was at the [employer] [place] in [place] all day Monday starting at 8:00 a.m.. She had little to eat. She did try to stay hydrated but around 5:00 a.m. she started to feel not right. When she went to the bathroom, she felt presyncopal, and then when she went to wash her hands she became very dizzy and lightheaded and was assisted to the ground by her cousin. The patient thinks she had a full syncopal episode. She was brought to the hospital by ambulance. Her initial blood pressure here was 155/96 mmHg. When she had the CT scan done on admission, getting up she became unresponsive and a rapid response was called. She did strike the back of her head on the headrest of the CT table. Orthostatic blood pressure check unremarkable. Subsequently has been hydrated and has been able to walk back and forth to the bathroom with no particular problems. She reports feeling a lot of palpitations particularly on the 1st day of admission but telemetry has not shown any arrhythmias. She would like to be discharged today. There is no chest pain or palpitations with these episodes. The patient recalls she has had syncope off and on her whole life starting in [place]. It can be brought on by pain, such as when she had severe menstrual cramps prior to her hysterectomy. This is the 1st episode of syncope she has had since the hysterectomy in April. She does have a history of palpitations and her Apple watch shows that is her heart rate sometimes jumps up into the 160s or so but apparently this is only for a few seconds and nothing susstained. She reports Dr. Marcus has done monitoring which shows PVCs and some tachycardias. The patient was evaluated in December for a vasovagal versus orthostatic syncopal episode. She had brief atypical chest pain at that time. She was seen by Dr. Cobb and no further workup was recommended. Patient was evaluated in February for a syncopal episode. Extensive neurologic workup was unremarkable, there were no arrhythmias seen on telemetry monitoring. The patient desired further cardiology evaluation and now sees Dr. Marcus. Echo in December 2020 showed normal LV function EF 65-70% and mild tricusp
--- NOTE | 2021-08-01 11:48 | PM.DS ---
DS: Admitting Diagnosis Discharge Date 08/01/2021 Admitting Diagnosis Syncope DS: Discharge Diagnosis Discharge Diagnosis (1) Syncope and collapse: Code(s): R55 - Syncope and collapse Status: Acute Assessment and Plan: Place in observation CT head with no acute intracranial abnormality CT angiogram of the chest no acute pulmonary embolism Continue to monitor (2) Morbid obesity with BMI of 40.0-44.9, adult: Code(s): E66.01 - Morbid (severe) obesity due to excess calories; Z68.41 - Body mass index [BMI] 40.0-44.9, adult Status: Acute Assessment and Plan: Lifestyle and diet modifications Plan # syncope orthostatic is negative chronology of events suggestive of orthostatic hypotension versus vasovagal. Multiple prior episodes reported. EKG with normal sinus rhythm. On telemetry monitoring which revealed no arrhythmia Echo done 01/17 with no significant valvular abnormality. She reports intermittent tachycardia associated with these episodes. He has had altered monitor done in the past which has been unrevealing. Might benefit from sending her home with event monitor. Consult Cardiology. Option of loop recorder discussed with the patient by heel pricker and she defer it until further discussion with Dr. Marcus IV hydration done and clinically euvolemic TSH was checked which came back normal # head injury CT head/cervical spine negative # elevated D-dimer CTA is negative for PE # hypertension continue lisinopril # mild leukocytosis recheck was normal. # DVT prophylaxis SCDs ambulatory # code status full code DS: Summary Hospital Course Hospital Course: See above Time Spent with Patient Time attestation: Total time spent providing and/or coordinating discharge services: 35 minutes Exam Narrative: GENERAL: The patient is well developed, not in acute distress HEENT: Nonicteric sclerae, PERRLA, EOMI. Oropharynx clear. Moist mucous membranes. Conjunctivae appear well perfused. CHEST: Chest wall is nontender. HEART: Regular rate and rhythm without murmur, rubs, or gallops LUNGS: Clear to auscultation bilaterally. no respiratory distress ABDOMEN: Soft, positive bowel sounds, non-tender, no organomegaly. SKIN: No rash, no excessive bruising, petechiae, or purpura. NEUROLOGIC: Cranial nerves II-XII intact, alert and oriented x 3, no gross motor deficits EXTREMITIES: no edema, cyanosis or clubbing DS: Data Data Completed and Pending Labs on day of discharge: Labs from last 24 hours 08/01/21 08/01/21 07/31/21 06:15 06:15 17:49 WBC 6.1 RBC 4.59 Hgb 13.2 Hct 40.3 MCV 87.8 MCH 28.8 MCHC 32.8 RDW 13.5 Plt Count 280 MPV 10.0 Immature Gran % (Auto) 0.5 Neut % (Auto) 60.1 Lymph % (Auto) 29.6 [place] % (Auto) 7.0 Eos % (Auto) 2.1 Baso % (Auto) 0.7 Lymph # (Auto) 1.81 [place] # (Auto) 0.4 Eos # (Auto) 0.1 Baso # (Auto) 0.0 Abs Immat Gran (auto) 0.03 Absolute Neuts (auto) 3.7 Absolute Nucleated RBC 0.0 Nucleated RBC % 0.0 Sodium 137 Potassium 4.2 Chloride 108 H Carbon Dioxide 23 Anion Gap 6 L BUN 8 Creatinine 0.70 Estim Creat Clear Calc 117 Estimated GFR > 60 Glucose 92 Calcium 8.7 Magnesium 2.2 TSH (Reflex) 3.000 Imaging Radiologist's impression: ITS Impressions Chest X-Ray 07/30/21 18:58 IMPRESSION: 1. No acute cardiopulmonary abnormality. Head CT 07/30/21 20:33 IMPRESSION: 1. No acute intracranial abnormality. Head CT 07/30/21 20:53 IMPRESSION: 1. No acute intracranial abnormality. Chest CTA 07/30/21 20:59 IMPRESSION: 1. No pulmonary embolism or acute cardiopulmonary abnormality. Cervical Spine CT 07/30/21 21:10 IMPRESSION: 1. Mild to moderate lower cervical spondylosis without acute findings or significant interval change. Discharge Plan Discharge Attending physician on discharge: Addy Venegas
== END 2021-08-01 13:25 | disposition home or self-care (01) ==
LOC: ANHED 22:39 → ANH3MEDSUR 23:20
PROVIDERS: Emergency Medicine; Physician Assistant; Admitting Provider Internal Medicine; Emergency Provider General Practice; Visit Provider Internal Medicine
DX: R55 Syncope and collapse (principal); I10 Essential (primary) hypertension; E66.01 Morbid (severe) obesity due to excess calories; Z68.41 Body mass index [BMI] 40.0-44.9, adult; Z90.710 Acquired absence of both cervix and uterus; Z20.822 Contact with and (suspected) exposure to COVID-19
CPT/HCPCS: 36415; 70450; 71046; 71275; 72125; 80048; 80053; 81001; 82550; 82948; 83735; 84443; 84484; 85025; 85380; 85610; 85730; 93005; 96361; 96365; 96375; 99285; A9270; C9803; G0378; J0131; J2405; J7030; Q9967; U0003; U0005

== ENCOUNTER 2021-11-10 12:21 | Emergency (ER) | payer BC, SELFPAY ==
--- NOTE | ~2021-11-10 | XR_ITS ---
EXAMINATION: XR foot LT min 3V DATE: 11/10/2021 12:41 INDICATION: Left foot injury. TECHNIQUE: 4 views of left foot were obtained. COMPARISON: None. FINDINGS: Bones normal. No fracture. There is mild osteoarthritis of first metatarsophalangeal joint, talonavicular joint, and some of the interphalangeal joints. There are enthesophytes at the posterio r and plantar aspects of calcaneal tuberosity. IMPRESSION: 1. Mild polyarticular osteoarthritis. Reviewed, dictated and finalized at location A.
--- NOTE | ~2021-11-10 | XR_ITS ---
EXAMINATION: XR ankle LT min 3V DATE: 11/10/2021 12:56 INDICATION: Left ankle pain TECHNIQUE: Anteroposterior, lateral, mortise, and additional oblique view of the ankle were obtained. COMPARISON: None. FINDINGS: Bone alignment is normal. There is no fracture. The soft tissues are unremarkable. Posterio r and plantar calcaneal enthesophytes are noted. IMPRESSION: 1. No acute osseous abnormality. Reviewed, dictated and finalized at location B.
--- NOTE | 2021-11-10 12:26 | ED.LOWEXIN ---
HPI - Extremity Injury (Lower) General Chief Complaint: Extremity Injury, Lower Stated Complaint: left foot injury Time Seen by Provider: 11/10/21 12:26 Source: patient Mode of arrival: ambulatory Limitations: no limitations History of Present Illness HPI Narrative: Ms. Yip is a 36-year-old female patient presenting to the clinic today with complaints of left foot pain/injury. She reports she was walking down the steps at [employer] in a new pair of [employer] shoes and her left foot caught the stairs and she ended up nearly falling. States she forcefully flexed her left foot and is having pain to the dorsal and plantar midfoot as well as some pain to the lateral ankle. Is unable to bear weight due to pain. Related Data Allergies Allergy/AdvReac Type Severity Reaction Status Date / Time Quinolones Allergy Severe swelling Verified 07/31/21 00:27 of tongue and lips ciprofloxacin Allergy Mild Other Verified 07/31/21 00:27 Sulfa (Sulfonamide Allergy Mild swelling, Verified 07/31/21 00:27 Antibiotics) SOB terbutaline Allergy Mild Other Verified 07/31/21 00:27 adhesive Allergy Unknown Other Verified 07/31/21 00:27 peanut Allergy Anaphylaxis Verified 07/31/21 00:27 pine nut Allergy Anaphylaxis Verified 07/31/21 00:27 tree nut Allergy Anaphylaxis Verified 07/31/21 00:27 naproxen AdvReac Swelling Verified 07/31/21 00:27 Review of Systems Review of Systems: Pertinent positives per HPI. Patient denies any fever, chills, rash, headache, visual changes, dizziness, cough, runny nose, sore throat, shortness of breath, chest pain, palpitations, nausea, vomiting, diarrhea, constipation, abdominal pain, or any urinary issues. [facility] Past Medical History Medical History Hypertension Interstitial cystitis Migraines Vasovagal syncope Surgical History Surgical History H/O: hysterectomy 04/2019 to History of tubal ligation Family History Family History Son Immunocompromised Sibling Immunocompromised Grandparent Cancer Hypertension Diabetes mellitus Congestive heart failure Cerebrovascular accident History of blood clots Acute myocardial infarction Father Cancer Hypertension Atrial fibrillation Status post ablation Social History Social History Smoking status: Never smoker Alcohol intake: never Drinks per week: 3 Substance use: never Substance use type: does not use Spiritual care concerns: No Comments At the time of my signature, I reviewed and agree with the nursing past medical, surgical, social, and family history. There is no relevant family history pertinent to the patient complaint. Exam Narrative: General: Well-developed, well nourished, in no apparent distress Head: Normocephalic, atraumatic. Cardio: Regular rate and rhythm, s1 and s2 normal, no murmur appreciated. Resp: Clear to auscultation bilaterally, no rhonchi, rales, wheezing or rubs. Musculoskeletal: No deformity,mild swelling noted over the dorsal left foot, pain to palpation over the distal dorsal left foot, plantar aspect of midfoot, and lateral left ankle, limited range of motion due to pain, muscle strength strong and equal, peripheral pulse strong, no edema, no cyanosis, sitting in wheelchair Course Course Emergency Course: Portions of this record may have been created with voice recognition software. Level of Care: Express Care Visit Vital Signs Vital signs: Vital Signs Temperature 37.4 C 11/10/21 12:48 Pulse Rate 82 11/10/21 12:48 Respiratory Rate 16 11/10/21 12:48 Blood Pressure 134/84 11/10/21 12:48 Pulse Oximetry 100 11/10/21 12:48 Temperature 37.4 C 11/10/21 12:48 Pulse Rate 82 11/10/21 12:48 Respiratory Rate 16
[2021-11-10 12:48] VITALS: BP 134/84; PULSE 82; RESP 16; TEMP 37.4; O2SAT 100
== END 2021-11-10 13:22 | disposition home or self-care (01) ==
PROVIDERS: Emergency Provider Nurse Practitioner Family; PCP Physician Assistant
DX: S93.602A Unspecified sprain of left foot, initial encounter (principal); X50.9XXA Other and unspecified overexertion or strenuous movements or postures, initial encounter; S93.402A Sprain of unspecified ligament of left ankle, initial encounter; I10 Essential (primary) hypertension
CPT/HCPCS: 73610; 73630; 99213; G0463

== ENCOUNTER 2022-01-24 15:06 | Emergency (ER) | payer BC, SELFPAY ==
--- NOTE | ~2022-01-24 | CT_ITS ---
EXAMINATION: CT brain wo con DATE: 01/24/2022 16:11 INDICATION: Right-sided headache for 2 weeks. Visual changes. TECHNIQUE: Computed tomography (CT) of the head was performed without intravenous contrast. The mA wa s adjusted according to patient size. Iterative reconstruction technique was employed. Exam dose: 60 5.33 mGy-cm total exam DLP. COMPARISON: 07/30/2021 CT brain 07/30/2021 CT head 03/04/2021 MRI brain/brainstem 03/03/2021 CT abdomen FINDINGS: No intracranial mass lesion or hemorrhage or cerebrovascular accident. No midline shift or mass effect effect. Normal ventricular size. Normal may-white matter differentiation. No subdural or epidural hematoma. The mastoid air cells and paranasal sinuses are normally aerated. No fracture or bone destruction of the cranial vault. IMPRESSION: Negative Reviewed, dictated and finalized at Location [facility]. Reviewed, dictated and finalized at location B. SC[facility] IMPRESSION: Negative
[2022-01-24 15:56] VITALS: BP 179/94; PULSE 95; RESP 18; TEMP 37.1; O2SAT 98
[2022-01-24 16:43] LABS: Influenza A QL RT-PCR Negative (Negative); Influenza B QL RT-PCR Negative (Negative); SARS-CoV-2 RNA PCR Negative
[2022-01-24 20:02] VITALS: BP 146/94; PULSE 87; RESP 18; O2SAT 97
[2022-01-24] MEDS: SODIUM CHLORIDE 0.9% IV 1,000 ML 999 ML IV CONT (20:21)
[2022-01-24] MEDS: diphenhydrAMINE HCl INJ 50 MG/ML VIAL 25 MG IV PUSH (20:24)
[2022-01-24] MEDS: KETOROLAC 30 MG/ML VIAL (*BKC) IV PUSH (20:24)
[2022-01-24] MEDS: methylPREDNISolone SOD SUCC 125 MG VIAL IV PUSH (20:24)
[2022-01-24] MEDS: METOCLOPRAMIDE HCL INJ 10 MG/2 ML VIAL IV PUSH (20:25)
--- NOTE | 2022-01-24 20:27 | ED.GENADULT ---
HPI - General Adult General Chief complaint: Unspecified Stated complaint: right sided headache, pains behind right eye Time Seen by Provider: 01/24/22 19:46 History of Present Illness HPI narrative: 36-year-old female presents to the emergency room for evaluation of sudden onset of a right-sided headache. Patient states the pain is behind her right eye and radiates posteriorly. Reports pain to the right side of her face and wraps around her scalp. Pain does not cross the nose or midline posteriorly. Describes the pain as a throbbing and stabbing sensation. Denies injury or trauma. Denies fever. Related Data Allergies Allergy/AdvReac Type Severity Reaction Status Date / Time Quinolones Allergy Severe swelling Verified 07/31/21 00:27 of tongue and lips ciprofloxacin Allergy Mild Other Verified 07/31/21 00:27 Sulfa (Sulfonamide Allergy Mild swelling, Verified 07/31/21 00:27 Antibiotics) SOB terbutaline Allergy Mild Other Verified 07/31/21 00:27 adhesive Allergy Unknown Other Verified 07/31/21 00:27 peanut Allergy Anaphylaxis Verified 07/31/21 00:27 pine nut Allergy Anaphylaxis Verified 07/31/21 00:27 tree nut Allergy Anaphylaxis Verified 07/31/21 00:27 naproxen AdvReac Swelling Verified 07/31/21 00:27 Review of Systems Review of Systems: CONSTITUTIONAL: Denies fever, chills, or sweats. EYES: Denies visual changes, redness, or discharge. ENT: Denies rhinorrhea, congestion, sore throat, or otalgia. CARDIOVASCULAR: Denies chest pain, palpitations, or edema. RESPIRATORY: Denies cough or dyspnea. GASTROINTESTINAL: Denies abdominal pain, nausea, vomiting, or diarrhea. GENITOURINARY: Denies dysuria or hematuria. SKIN: Denies rash or itching. MUSCULOSKELETAL: Denies back pain, joint pain, or myalgia. NEUROLOGIC: Reports headache, facial pain PSYCHIATRIC: Denies anxiety or depression. [facility] Past Medical History Medical History Hypertension Interstitial cystitis Migraines Vasovagal syncope Surgical History Surgical History H/O: hysterectomy 04/2019 to History of tubal ligation Family History Family History Son Immunocompromised Sibling Immunocompromised Grandparent Cancer Hypertension Diabetes mellitus Congestive heart failure Cerebrovascular accident History of blood clots Acute myocardial infarction Father Cancer Hypertension Atrial fibrillation Status post ablation Social History Social History Smoking status: Never smoker Alcohol intake: never Drinks per week: 3 Substance use: never Substance use type: does not use Spiritual care concerns: No Exam Narrative: GENERAL: Well-appearing, well-nourished, no physical limitations, and in no acute distress. HEAD: Normocephalic, atraumatic. EYES: Conjunctivae normal, PERRLA and EOMI. ENT: External nose normal, Nares clear, no rhinorrhea or epistaxis. Mucous membranes moist. Oropharynx without tonsillar hypertrophy exudate or other lesions. External ears normal, bilateral TMs normal bilaterally NECK: Supple. No meningeal signs. CHEST: Clear to auscultation. No respiratory distress. No wheezes rales or rhonchi. HEART: Regular rate and rhythm. No murmur heard. Normal peripheral pulses. EXTREMITIES: Normal range of motion. No edema. No clubbing or cyanosis SKIN: Warm, dry, no rash. No noted wounds NEURO: No focal deficits. Alert and oriented x3. MAEW. CN's II-XI intact bilaterally, normal gait. Tenderness extending from right side of the face to the right lateral scalp. No noted rashes. PSYCH: Cooperative. Normal mood and affect. Course Vital Signs Vital signs: Vital Signs Temperature 37.1 C 01/24/22 15:56 Pulse Rate 95 01/24/22 15:56 Respiratory Rate 18 01/24/22 15:56 Blood Pr
[2022-01-24 21:54] LABS: Erythrocyte Sedimentation Rate 10 mm/hr (0-20)
== END 2022-01-24 22:44 | disposition home or self-care (01) ==
PROVIDERS: Emergency Medicine; Emergency Provider Nurse Practitioner Family; PCP Physician Assistant
DX: R51.9 Headache, unspecified (principal); Z20.822 Contact with and (suspected) exposure to COVID-19; I10 Essential (primary) hypertension; N30.10 Interstitial cystitis (chronic) without hematuria; Z90.710 Acquired absence of both cervix and uterus
CPT/HCPCS: 36415; 70450; 85652; 87636; 96361; 96374; 96375; 99284; J1200; J1885; J2765; J2930; J7030

== ENCOUNTER → 2022-02-25 09:49 | Outpatient (CLI) | payer BC, SELFPAY ==
--- NOTE | ~2022-02-25 | XR_ITS ---
EXAMINATION: XR chest 2V DATE: 02/25/2022 10:09 INDICATION: Positive TB test TECHNIQUE: Frontal and lateral views of the chest are obtained COMPARISON: 07/30/2021 FINDINGS: The lungs are free of acute opacities. No pleural effusion or pneumothorax. The cardiomedia stinal silhouette is normal. There is mild thoracic spondylosis. IMPRESSION: 1. No acute cardiopulmonary abnormality. Reviewed, dictated and finalized at location B. [facility]
== END ==
PROVIDERS: PCP Internal Medicine; Visit Provider Internal Medicine
DX: R76.11 Nonspecific reaction to tuberculin skin test without active tuberculosis (principal)
CPT/HCPCS: 71046

== ENCOUNTER 2023-01-24 14:35 | Emergency (ER) | payer BC, SELFPAY ==
[2023-01-24 14:50] VITALS: BP 128/83; PULSE 103; RESP 16; TEMP 36.3; O2SAT 100
--- NOTE | 2023-01-24 14:51 | ED.URI ---
HPI - URI/Sore Throat General Chief Complaint: Upper Respiratory Infection Stated Complaint: sore throat,both ears hurt Time Seen by Provider: 01/24/23 15:21 Source: patient and RN notes reviewed Mode of arrival: ambulatory Limitations: no limitations History of Present Illness HPI Narrative: 37-year-old female presents with concern for sore throat, hoarse voice, painful swallowing. Reports her ears hurt with swallowing. She reports she takes immune suppressants for RA. She is worried for strep throat. She reports she has body aches at baseline, she has not noticed anything new. MD elicited complaint: sore throat Related Data Home Medications Medication Instructions Recorded Confirmed azathioprine 50 mg tablet mg 01/24/23 colchicine 0.6 mg tablet mg 01/24/23 cyclobenzaprine 5 mg tablet mg 01/24/23 folic acid 1 mg tablet 01/24/23 golimumab 12.5 mg/mL intravenous 100 mg IV ONCE 01/24/23 01/24/23 solution (Simponi ARIA) lisinopril 10 mg tablet mg 01/24/23 omeprazole 20 mg capsule,delayed mg 01/24/23 release prednisone 20 mg tablet mg 01/24/23 tramadol 50 mg tablet mg 01/24/23 Allergies Allergy/AdvReac Type Severity Reaction Status Date / Time Quinolones Allergy Severe swelling Verified 01/24/23 14:54 of tongue and lips ciprofloxacin Allergy Mild Other Verified 01/24/23 14:54 Sulfa (Sulfonamide Allergy Mild swelling, Verified 01/24/23 14:54 Antibiotics) SOB terbutaline Allergy Mild Other Verified 01/24/23 14:54 adhesive Allergy Unknown Other Verified 01/24/23 14:54 peanut Allergy Anaphylaxis Verified 01/24/23 14:54 pine nut Allergy Anaphylaxis Verified 01/24/23 14:54 tree nut Allergy Anaphylaxis Verified 01/24/23 14:54 naproxen AdvReac Swelling Verified 01/24/23 14:54 Review of Systems Review of Systems: CONSTITUTIONAL: Denies malaise, chills, sweats, or fever. EYES: Denies visual changes, redness, or discharge. ENT: Denies rhinorrhea, congestion, sinus pain. Reports otalgia and sore throat. CARDIOVASCULAR: Denies chest pain, palpitations, or edema. RESPIRATORY: Denies new cough. Denies dyspnea. GASTROINTESTINAL: Denies abdominal pain, nausea, vomiting, diarrhea SKIN: Denies rash or itching. MUSCULOSKELETAL: Denies new myalgia. NEUROLOGIC: Denies headache. All systems reviewed & are unremarkable except as noted in HPI and below PMFSH Past Medical History Medical History Hypertension Interstitial cystitis Migraines Vasovagal syncope Surgical History Surgical History H/O: hysterectomy 04/2019 to History of tubal ligation Family History Family History Son Immunocompromised Sibling Immunocompromised Grandparent Cancer Hypertension Diabetes mellitus Congestive heart failure Cerebrovascular accident History of blood clots Acute myocardial infarction Father Cancer Hypertension Atrial fibrillation Status post ablation Social History Social History Smoking status: Never smoker Alcohol intake: never Drinks per week: 3 Substance use: never Substance use type: does not use Spiritual care concerns: No Comments At time of signature, agree with nursing past medical, surgical, social and family history. There is no relevant family history pertinent to the presenting complaint Exam Narrative: GENERAL: Well-appearing, well-nourished, and in no acute distress. HEAD: Normocephalic EYES: PERRLA, conjunctivae clear ENT: Nares clear. Mucous membranes moist. TM pearly may with dull light reflex bilaterally; no tragal tenderness. Oropharynx not erythematous without lesions. Tonsils not enlarged and without exudate, no drooling, no hoarseness, no trismus, uvula midline. NECK: Supple. No lymphadenopathy CHEST: Clear to au
[2023-01-24 14:56] VITALS: BP 128/83; PULSE 103; RESP 16; TEMP 36.3; O2SAT 100
== END 2023-01-24 15:35 | disposition home or self-care (01) ==
PROVIDERS: Emergency Provider Nurse Practitioner; PCP Nurse Practitioner Family
DX: J02.9 Acute pharyngitis, unspecified (principal); I10 Essential (primary) hypertension
CPT/HCPCS: 87081; 87880; 99213; G0463

== ENCOUNTER 2023-02-22 08:17 | Outpatient (CLI) | payer BC, SELFPAY ==
--- NOTE | ~2023-02-22 | XR_ITS ---
XR barium swallow DATE: 02/22/2023 09:16 INDICATION: Choked on food including liquids TECHNIQUE: Fluoroscopy, rapid sequence spot and overhead radiographs during oral ingestion of barium contrast material COMPARISON: None FINDINGS: There is intermittent cricopharyngeus muscle impression upon the posterior lower cervical e sophagus consistent with cricopharyngeus muscle dysfunction There is otherwise normal deglutition and esophageal peristalsis. No stricture, mucosal fold thickening, erosion, ulceration, diverticulum or intraluminal mass lesion of the esophagus is detected. No hiatal hernia is noted. No gastroesophageal reflux was demonstrated during the examination. IMPRESSION: Intermittent cricopharyngeus muscle dysfunction Otherwise normal examination of the esophagus Reviewed, dictated and finalized at [facility]. Reviewed, dictated and finalized at [facility]. [employer]
== END 2023-02-22 08:18 | disposition home or self-care (01) ==
PROVIDERS: PCP Nurse Practitioner Family
DX: R13.19 Other dysphagia (principal)
CPT/HCPCS: 74220

== ENCOUNTER 2023-05-18 15:38 | Emergency (ER) | payer OTHER, SELFPAY ==
[2023-05-18 15:51] VITALS: BP 141/80; PULSE 85; RESP 18; TEMP 37.2; O2SAT 100
--- NOTE | 2023-05-18 16:20 | ED.ABDPAIN ---
HPI - Abdominal Pain General Chief Complaint: Abdominal Pain Stated Complaint: Abdominal Pain Time Seen by Provider: 05/18/23 15:43 Source: patient Mode of arrival: ambulatory Limitations: no limitations History of Present Illness HPI narrative: Patient is a 38-year-old female who presents with right lower quadrant abdominal pain that radiates to her umbilicus and into the groin. Reports pain worsened after standing up from bowel movement. Patient reports that was a normal bowel movement with no blood. Patient has her appendix and ovaries. Has never been told she has an ovarian cyst. Denies any vomiting but has been nauseous. Reports holding heat on abdomen has helped minimally. Denies any trauma to abdomen. Does not have any low back pain, history of kidney stones or urinary symptoms. Patient had virtual visit and was told to come for evaluation. Related Data Home Medications Medication Instructions Recorded Confirmed azathioprine 50 mg tablet 50 mg PO DAILY 01/24/23 05/18/23 colchicine 0.6 mg tablet 0.6 mg PO DAILY 01/24/23 05/18/23 cyclobenzaprine 5 mg tablet 5 mg PO TID PRN back spasms 01/24/23 05/18/23 folic acid 1 mg tablet 1 mg PO DAILY 01/24/23 05/18/23 golimumab 12.5 mg/mL intravenous 100 mg IV ONCE 01/24/23 05/18/23 solution (Simponi ARIA) lisinopril 10 mg tablet 10 mg PO DAILY 01/24/23 05/18/23 omeprazole 20 mg capsule,delayed 20 mg PO DAILY 01/24/23 05/18/23 release prednisone 20 mg tablet 20 mg PO DAILY 01/24/23 05/18/23 tramadol 50 mg tablet 50 mg PO HS 01/24/23 05/18/23 Allergies Allergy/AdvReac Type Severity Reaction Status Date / Time Quinolones Allergy Severe swelling Verified 05/18/23 15:42 of tongue and lips ciprofloxacin Allergy Mild Other Verified 05/18/23 15:42 Sulfa (Sulfonamide Allergy Mild swelling, Verified 05/18/23 15:42 Antibiotics) SOB terbutaline Allergy Mild Other Verified 05/18/23 15:42 adhesive Allergy Unknown Other Verified 05/18/23 15:42 peanut Allergy Anaphylaxis Verified 05/18/23 15:42 pine nut Allergy Anaphylaxis Verified 05/18/23 15:42 tree nut Allergy Anaphylaxis Verified 05/18/23 15:42 naproxen AdvReac Swelling Verified 05/18/23 15:42 Review of Systems Review of Systems: All systems reviewed & are unremarkable except as noted in HPI and below Constitutional: Constitutional: Denies body ache(s), Denies chills, Denies fatigue, Denies fever(s), Denies headache(s), Denies malaise and Denies weakness Eyes: Eyes: Denies blurry vision, Denies irritation and Denies loss of vision ENT: Denies otalgia, Denies headache(s), Denies nasal discharge, Denies sinus pain and Denies sore throat Cardiovascular: Cardiovascular: Denies chest pain, Denies irregular heart rhythm and Denies dyspnea Respiratory: Respiratory: Denies dyspnea Gastrointestinal: Gastrointestinal: Reports abdominal pain, Denies melena, Denies hematochezia, Denies diarrhea, Reports nausea and Denies vomiting Musculoskeletal: Musculoskeletal: Denies back pain, Denies myalgias and Denies arthralgias Integumentary/Breasts: Skin/Breast: Denies pruritus and Denies rash Neurologic: Denies headache(s), Denies loss of vision and Denies weakness Psychiatric: Psychiatric: Reports no additional psychiatric complaints Endocrine: Endocrine: Denies fatigue PMFSH Past Medical History Medical History Hypertension Interstitial cystitis Migraines Vasovagal syncope Surgical History Surgical History H/O: hysterectomy 04/2019 to History of tubal ligation Family History Family History Son Immunocompromised Sibling Immunocompromised Grandparent Cancer Hypertension Diabetes mellitus Congestive heart failure Cerebrovascular accident History of blood clots Acute myocardial infarction Father Cancer Hypertension Atrial f
== END 2023-05-18 16:29 | disposition short-term general hospital (02) ==
PROVIDERS: Emergency Provider Nurse Practitioner Family; PCP Nurse Practitioner Family
DX: R10.31 Right lower quadrant pain (principal); I10 Essential (primary) hypertension
CPT/HCPCS: 99215; G0463

== ENCOUNTER 2023-05-18 16:50 | Emergency (ER) | payer OTHER, SELFPAY ==
--- NOTE | ~2023-05-18 | US_ITS ---
EXAMINATION: US pelvic complete DATE: 05/18/2023 19:50 INDICATION: Right lower quadrant pain TECHNIQUE: Multiple transabdominal and endovaginal sonographic images of the pelvis were obtained. COMPARISON: None. FINDINGS: The uterus is surgically absent. The right ovary measures 5.1 x 5.1 x 4.2 cm and contains a 4.5 cm cyst. The left ovary measures 2.3 x 2.7 x 2.7 cm. There is normal vascular flow in the ovarie s. There is no free fluid in the pelvis. IMPRESSION: 1. No sonographic correlate for the patient's symptoms. Reviewed, dictated and finalized at [facility].
--- NOTE | ~2023-05-18 | CT_ITS ---
EXAMINATION: CT abdomen pelvis w con INDICATION: Lower abdominal pain TECHNIQUE: Computed tomographic images of the abdomen and pelvis were obtained after the administrati on of 100 cc of Omnipaque 350 intravenous contrast. The dose-length product (DLP) was 1526.15 mGy-cm. Automated exposure control and iterative reconstruction technique were employed. COMPARISON: 01/22/2021 FINDINGS: The lung bases are clear. The heart size is normal. There is a small sliding hiatal hernia. Again noted is a chronic 7 mm hypoattenuating lesion of the left hepatic lobe, consistent with a benny ign finding. Chronic hypoattenuating lesions of the spleen measuring up to 14 mm are also likely larry gn. The spleen, pancreas, and adrenal glands are normal. The left kidney is unremarkable. Hypoattenua ting lesions of the left kidney measuring up to 4 mm are too small to characterize but likely represe nt cysts. No pathologically enlarged abdominal or pelvic lymph nodes are identified. The appendix is normal. No free intraperitoneal gas or evidence of bowel obstruction. There is a 4.4 cm cystic lesion of the right adnexa. There is an umbilical hernia containing fat. There are also supraumbilical vent ral hernias containing fat. IMPRESSION: 1. 4.4 cm cystic lesion of the right adnexa. Pelvic ultrasound is pending to evaluate for possible to rsion. Reviewed, dictated and finalized at [facility]. IMPRESSION: 1. 4.4 cm cystic lesion of the right adnexa. Pelvic ultrasound is pending to ev aluate for possible torsion.
[2023-05-18 16:53] VITALS: BP 153/84; PULSE 87; RESP 16; TEMP 36.8; O2SAT 100
--- NOTE | 2023-05-18 16:57 | ED.ABDPAIN ---
HPI - Abdominal Pain General Chief Complaint: Abdominal Pain <JENARO Renae Last Filed: 05/18/23 17:05> Stated Complaint: ABD PAIN X1D <JENARO Renae Last Filed: 05/18/23 17:05> Time Seen by Provider: 05/18/23 16:57 <Josefa Duarte PA-C - Last Filed: 05/18/23 17:05> Focused HPI: Patient is a 38-year-old female, with PMH of RA, Behcet's disease, interstitial cystitis, who presents the ED via EMS with report of abdominal pain. Patient reports she first developed pain diffusely throughout her abdomen yesterday after having a bowel movement. She states the pain felt like a cramping, like a charley horse throughout her entire abdomen. pain improved on its own within approximately 20 minutes. She has had more mild persistent pain since then. Pain became worse around 3:00 p.m. today. She went to an urgent care where pain continue to worsen. EMS was then called. She describes the pain currently throughout her right lower abdomen radiating across her lower abdomen. she has not tried anything for the pain. Given fentanyl en route by EMS. Reports nausea, denies vomiting, diarrhea, constipation, fevers, dysuria, hematuria. GENERAL: Uncomfortable appearing, morbidly obese with BMI of 45.4, and in no acute distress. HEAD: Normocephalic, atraumatic. CHEST: Clear to auscultation. ?No respiratory distress. HEART: Regular rate and rhythm.? ABD: Diffuse tenderness throughout abdomen, worst throughout lower abdomen. NEURO: ?Alert and oriented x3. PSYCH: Tearful, anxious. Patient screened in triage and initial orders placed.? ?Additional care and disposition to be based upon?diagnostic testing and treatment. <JENARO Renae Last Filed: 05/18/23 17:05> Source: patient <JENARO Renae Last Filed: 05/18/23 17:05> Mode of arrival: EMS <JENARO Renae Last Filed: 05/18/23 17:05> Limitations: no limitations <Josefa Duarte PA-C - Last Filed: 05/18/23 17:05> Related Data Home Medications: Home Medications Medication Instructions Recorded Confirmed azathioprine 50 mg tablet 50 mg PO DAILY 01/24/23 05/18/23 colchicine 0.6 mg tablet 0.6 mg PO DAILY 01/24/23 05/18/23 cyclobenzaprine 5 mg tablet 5 mg PO TID PRN back spasms 01/24/23 05/18/23 folic acid 1 mg tablet 1 mg PO DAILY 01/24/23 05/18/23 golimumab 12.5 mg/mL intravenous 100 mg IV ONCE 01/24/23 05/18/23 solution (Simponi ARIA) lisinopril 10 mg tablet 10 mg PO DAILY 01/24/23 05/18/23 omeprazole 20 mg capsule,delayed 20 mg PO DAILY 01/24/23 05/18/23 release prednisone 20 mg tablet 20 mg PO DAILY 01/24/23 05/18/23 tramadol 50 mg tablet 50 mg PO HS 01/24/23 05/18/23 <Josefa Duatre PA-C - Last Filed: 05/18/23 17:05> Allergies/Adverse Reactions: Allergies Allergy/AdvReac Type Severity Reaction Status Date / Time Quinolones Allergy Severe swelling Verified 05/18/23 15:42 of tongue and lips ciprofloxacin Allergy Mild Other Verified 05/18/23 15:42 Sulfa (Sulfonamide Allergy Mild swelling, Verified 05/18/23 15:42 Antibiotics) SOB terbutaline Allergy Mild Other Verified 05/18/23 15:42 adhesive Allergy Unknown Other Verified 05/18/23 15:42 peanut Allergy Anaphylaxis Verified 05/18/23 15:42 pine nut Allergy Anaphylaxis Verified 05/18/23 15:42 tree nut Allergy Anaphylaxis Verified 05/18/23 15:42 naproxen AdvReac Swelling Verified 05/18/23 15:42 <Josefa Duarte PA-C - Last Filed: 05/18/23 17:05> [facility] Past Medical History Medical History: Medical History Hypertension Interstitial cystitis Migraines Vasovagal syncope <Josefa Duarte PA-C - Last Filed: 05/18/23 17:05> Surgical History Surgical History: Surgical History H/O: hysterectomy 04/2019 to History of tubal ligation <Ra
[2023-05-18] MEDS: ACETAMINOPHEN 500 MG TABLET 1000 MG PO ×2 (17:41→21:20)
[2023-05-18] MEDS: ONDANSETRON INJ 4 MG/2 ML VIAL IV PUSH (17:44)
--- NOTE | 2023-05-18 17:47 | PC.NURSE ---
Called ED charge per pts request to speak with Dr Carrera.
[2023-05-18 17:55] LABS: Basophils Percent Auto 0.5 % (0.2-1.2); Eosinophils Absolute Auto 0.1 K/mm3 (0-0.3); Eosinophils Percent Auto 0.8 % (0-4.4); Hematocrit 42.4 % (37.0-47.0); Hemoglobin 14.3 g/dL (12.0-15.0); Immature Granulocyte Absolute 0.03 K/mm3 (0.00-0.031); Immature Granulocyte Percent A 0.4 % (0-0.5); Lymphocytes Absolute Auto 2.75 K/mm3 (0.9-3.2); Mean Corpuscular HGB Conc 33.7 g/dl (32-36); Mean Corpuscular Hemoglobin 30.1 pg (26-34); Mean Corpuscular Volume 89.3 fl (80-100); Monocytes Absolute Auto 0.4 K/mm3 (0.1-0.6); Monocytes Percent Auto 5.2 % (2.6-8.5); Neutrophils Absolute Auto 4.6 K/mm3 (1.3-6.7); Neutrophils Percent Auto 58.1 % (45.5-73.1); Platelet Count Result 302 k/mm3 (150-375); Red Blood Count 4.75 M/mm3 (4.2-5.4); Red Cell Distribution Width 13.2 % (11.5-14.5); White Blood Count 7.9 K/mm3 (4.5-10.0)
[2023-05-18 18:07] LABS: Alanine Aminotransferase 23 U/L (6-35); Albumin Level 4.2 g/dL (3.5-5.1); Alkaline Phosphatase 61 U/L (38-126); Anion Gap 5 mmol/L (8-16); Aspartate Amino Transferase 26 U/L (14-36); Bilirubin,Total 0.6 mg/dL (0.2-1.3); Blood Urea Nitrogen 9 mg/dL (7-17); Calcium 8.8 mg/dL (8.4-10.2); Carbon Dioxide 21 mmol/L (22-30); Chloride 107 mmol/L (98-107); Estimated CRCL calculation 137 ml/min; Estimated Glomerular Filt Rate > 60; Glucose 86 mg/dL (65-110); Lipase 227 U/L (23-300); Potassium 3.5 mmol/L (3.4-5.0); Sodium 133 mmol/L (137-145)
[2023-05-18 18:22] LABS: Appearance Urine Clear (Clear); Bacteria Urine None Seen /hpf; Bilirubin Urine Negative (Negative); Blood Urine Negative (Negative); Color Urine Yellow (Yellow); Glucose Urine UA Negative (Negative); Ketones Urine 1+ mg/dL (Negative); Leukocyte Esterase Ur 2+ LEU/UL (Negative); Need Manual Microscopic Reviewed; Nitrate Urine Negative (Negative); Non Pathogenic Casts 0-2; Protein Urine Negative (Negative); RBC Urine 0-2 /hpf (0-2); Specific Grav Ur 1.018 (1.001-1.035); Squamous Epithelial Cell Urine Occasional /hpf (Few); Urobilinogen Urine 0.2 mg/dL (<2.0); WBC Urine 0-5 /hpf (0-3); pH Urine 5.5 (5.0-9.0)
[2023-05-18 18:25] LABS: Add Urine Microscopic? YES
[2023-05-18 19:57] LABS: Pregnancy On Board Control Positive; Urine Pregnancy Test Negative
[2023-05-18 19:59] VITALS: BP 129/92; PULSE 75; RESP 16; O2SAT 99
[2023-05-18] MEDS: HYDROmorphone HCL INJ (*CRX) 1 MG/ML SYR 0.5 MG IV PUSH (21:21)
[2023-05-18 21:46] VITALS: BP 135/74; PULSE 76; RESP 13; O2SAT 100
== END 2023-05-18 21:48 | disposition home or self-care (01) ==
PROVIDERS: Emergency Medicine; Physician Assistant; Emergency Provider Emergency Medicine
DX: N83.201 Unspecified ovarian cyst, right side (principal); I10 Essential (primary) hypertension; N30.10 Interstitial cystitis (chronic) without hematuria; M06.9 Rheumatoid arthritis, unspecified; M35.2 Behcet's disease; Z90.710 Acquired absence of both cervix and uterus
CPT/HCPCS: 36415; 74177; 76856; 80053; 81025; 83690; 85025; 96374; 96375; 99284; A9270; J1170; J2405; Q9967

== ENCOUNTER → 2024-03-07 15:55 | Outpatient (CLI) | payer OTHER, SELFPAY ==
--- NOTE | ~2024-03-07 | XR_ITS ---
XR hip LT min 2V 03/07/2024 16:13 Indication: Left hip pain Procedure: 2 views left hip Comparison: No prior studies for comparison. Findings: There is mild osteoarthritis of the left hip with marginal osteophytosis originating from t he lateral margin of the acetabulum.. No fracture or traumatic malalignment. There is anatomic alignm ent. No soft tissue abnormality. No foreign bodies. Impression: 1: Mild osteoarthritis of the left hip. Reviewed, dictated and finalized at [facility]. [employer] Impression: 1: Mild osteoarthritis of the left hip.
== END ==
LOC: EXPCRAD 16:00
DX: M16.12 Unilateral primary osteoarthritis, left hip (principal)
CPT/HCPCS: 73502